=== PATIENT | female | born 1970 | race Caucasian/White ===

== ENCOUNTER → 2017-08-11 13:54 | Outpatient (CLI) | payer BC, SELFPAY ==
[2017-08-11 15:40] LABS: Hematocrit 35.9 % (37-47); Hemoglobin 11.6 g/dl (12.0-15.0); Mean Corp Hgb Conc 32.3 g/gl (32-36); Mean Corpuscular Hgb 27.8 pg (27.0-32.0); Mean Corpuscular Volume 86.1 fL (81-99); Mean Platelet Vol. 12.6 fl (6.2-12.0); Platelet Count 516 K/mm3 (150-450); RBC Distribution Width CV 13.8 % (11.6-14.6); RBC Distribution Width SD 42.9 fl (35.1-43.9); Red Blood Count 4.17 M/mm3 (4.2-5.4); White Blood Count 10.4 K/mm3 (4.4-11.0)
[2017-08-11 15:53] LABS: ALB/GLOB Ratio 0.7 RATIO (0.9-2.4); AST(SGOT) 20 U/L (15-37); Alanine Aminotransfer ALT/SGPT 33 U/L (13-56); Albumin, Serum 3.2 g/dL (3.2-5.0); Alkaline Phosphatase 173 U/L (45-117); Anion Gap 11 (5-15); BUN 14 mg/dL (7-18); BUN/Creat Ratio 13.3 RATIO (10-20); Calcium,Total 9.4 mg/dL (8.5-10.1); Chloride 101 mmol/L (98-107); Creatinine, Serum 1.05 mg/dL (0.55-1.02); EST Glomerular Filtration Rate 59 mL/min (>60); Est Glom Filt Rate - Afr Amer 72 mL/min (>60); GGTP 63 U/L (5-55); Globulin 4.8 g/dL (2.2-4.2); Glucose 93 mg/dL (74-106); Potassium 3.6 mmol/L (3.5-5.1); Rheumatoid Factor < 10.0 IU/mL (<15); Sodium Level 136 mmol/L (136-145); T4 Total, Thyroxin 12.8 ug/dL (4.8-13.9); Uric Acid 4.6 mg/dL (2.6-6.0)
[2017-08-11 15:54] LABS: Scan Indicated on CBC? Y/N NO
[2017-08-11 16:29] LABS: Erythrocyte Sedimentation Rate 89 mm/hr (0-20)
[2017-08-14 11:07] LABS: ANTINUCLEAR ANTIBODIES DIRECT Negative (Negative)
[2017-08-14 20:07] LABS: Complement C3 236 mg/dL (82-167); Immunoglobulin A 173 mg/dL (87-352); Immunoglobulin G 1053 mg/dL (700-1600); Lyme IgG P18 Ab Absent (.); Lyme IgG P23 Ab Absent (.); Lyme IgG P28 Ab Absent (.); Lyme IgG P30 Ab Absent (.); Lyme IgG P39 Ab Absent (.); Lyme IgG P41 Ab Absent (.); Lyme IgG P45 Ab Absent (.); Lyme IgG P58 Ab Absent (.); Lyme IgG P66 Ab Absent (.); Lyme IgG P93 Ab Absent (.); Lyme IgM P23 Ab Present (.); Lyme IgM P39 Ab Absent (.); Lyme IgM P41 Ab Present (.)
[2017-08-15 08:33] LABS: CMV Acute Antibody IgM < 30.0 AU/mL (0.0-29.9); Complement CH50 > 60 U/mL (42-60); EBV Acute VCA IgM < 36.0 U/mL (0.0-35.9); EBV Early Antigen IgG 18.7 U/mL (0.0-8.9); EBV Nuclear Antigen IgG > 600.0 U/mL (0.0-17.9); Lyme IgG WB Interpretation Negative (.); Lyme IgM WB Interpretation Positive (.)
== END ==
PROVIDERS: Family Provider Family Medicine; PCP Family Medicine; Visit Provider Internal Medicine
DX: A69.20 Lyme disease, unspecified (principal); M25.50 Pain in unspecified joint; R53.83 Other fatigue
CPT/HCPCS: 36415; 80053; 82784; 82977; 84436; 84443; 84550; 85027; 85652; 86038; 86160; 86162; 86431; 86617; 86644; 86645; 86663; 86664; 86665

== ENCOUNTER → 2017-10-20 14:51 | Outpatient (CLI) | payer BC, SELFPAY ==
[2017-10-20 17:50] LABS: Hematocrit 40.1 % (37-47); Hemoglobin 12.9 g/dl (12.0-15.0); Mean Corp Hgb Conc 32.2 g/gl (32-36); Mean Corpuscular Hgb 27.8 pg (27.0-32.0); Mean Corpuscular Volume 86.4 fL (81-99); Mean Platelet Vol. 13.3 fl (6.2-12.0); Platelet Count 333 K/mm3 (150-450); RBC Distribution Width CV 14.6 % (11.6-14.6); RBC Distribution Width SD 45.6 fl (35.1-43.9); Red Blood Count 4.64 M/mm3 (4.2-5.4); White Blood Count 8.4 K/mm3 (4.4-11.0)
[2017-10-20 17:51] LABS: Scan Indicated on CBC? Y/N NO
[2017-10-20 18:06] LABS: Albumin, Serum 3.9 g/dL (3.2-5.0); BUN 11 mg/dL (7-18); BUN/Creat Ratio 11.7 RATIO (10-20); Creatinine, Serum 0.94 mg/dL (0.55-1.02); EST Glomerular Filtration Rate 67 mL/min (>60); Est Glom Filt Rate - Afr Amer 82 mL/min (>60); Glucose 108 mg/dL (74-106); Protein, Total 8.1 g/dL (6.4-8.2); Uric Acid 6.6 mg/dL (2.6-6.0)
[2017-10-20 18:07] LABS: ALB/GLOB Ratio 0.9 RATIO (0.9-2.4); AST(SGOT) 50 U/L (15-37); Alanine Aminotransfer ALT/SGPT 63 U/L (13-56); Alkaline Phosphatase 134 U/L (45-117); Anion Gap 11 (5-15); Calcium,Total 9.7 mg/dL (8.5-10.1); Chloride 105 mmol/L (98-107); Globulin 4.2 g/dL (2.2-4.2); Potassium 4.1 mmol/L (3.5-5.1); Sodium Level 141 mmol/L (136-145)
== END ==
PROVIDERS: Family Provider Family Medicine; PCP Family Medicine; Visit Provider Internal Medicine
DX: A69.20 Lyme disease, unspecified (principal); R53.83 Other fatigue; Z79.2 Long term (current) use of antibiotics
CPT/HCPCS: 36415; 80053; 84550; 85027

== ENCOUNTER → 2017-12-21 13:10 | Outpatient (CLI) | payer BC, SELFPAY ==
[2017-12-21 13:58] LABS: Hematocrit 38.9 % (37-47); Hemoglobin 12.8 g/dl (12.0-15.0); Mean Corp Hgb Conc 32.9 g/gl (32-36); Mean Corpuscular Hgb 28.3 pg (27.0-32.0); Mean Corpuscular Volume 86.1 fL (81-99); Platelet Count 326 K/mm3 (150-450); RBC Distribution Width CV 13.9 % (11.6-14.6); Red Blood Count 4.52 M/mm3 (4.2-5.4); White Blood Count 8.5 K/mm3 (4.4-11.0)
[2017-12-21 14:00] LABS: Scan Indicated on CBC? Y/N NO
[2017-12-21 14:14] LABS: ALB/GLOB Ratio 0.9 RATIO (0.9-2.4); AST(SGOT) 39 U/L (15-37); Alanine Aminotransfer ALT/SGPT 49 U/L (13-56); Albumin, Serum 3.7 g/dL (3.2-5.0); Alkaline Phosphatase 112 U/L (45-117); Anion Gap 11 (5-15); BUN 8 mg/dL (7-18); BUN/Creat Ratio 8.2 RATIO (10-20); Calcium,Total 8.3 mg/dL (8.5-10.1); Chloride 104 mmol/L (98-107); Creatinine, Serum 0.97 mg/dL (0.55-1.02); EST Glomerular Filtration Rate 64 mL/min (>60); Est Glom Filt Rate - Afr Amer 78 mL/min (>60); Globulin 4.3 g/dL (2.2-4.2); Glucose 83 mg/dL (74-106); Sodium Level 141 mmol/L (136-145); Uric Acid 6.4 mg/dL (2.6-6.0)
== END ==
PROVIDERS: Family Provider Family Medicine; PCP Family Medicine; Visit Provider Internal Medicine
DX: A69.20 Lyme disease, unspecified (principal); R53.83 Other fatigue; Z79.2 Long term (current) use of antibiotics
CPT/HCPCS: 36415; 80053; 84550; 85027

== ENCOUNTER → 2018-03-08 12:50 | Outpatient (CLI) | payer BC, SELFPAY ==
[2018-03-08 14:06] LABS: Hematocrit 39.2 % (37-47); Hemoglobin 13.3 g/dl (12.0-15.0); Mean Corp Hgb Conc 33.9 g/gl (32-36); Mean Corpuscular Hgb 29.1 pg (27.0-32.0); Mean Corpuscular Volume 85.8 fL (81-99); Mean Platelet Vol. 11.6 fl (6.2-12.0); Platelet Count 287 K/mm3 (150-450); RBC Distribution Width CV 13.7 % (11.6-14.6); RBC Distribution Width SD 42.6 fl (35.1-43.9); Red Blood Count 4.57 M/mm3 (4.2-5.4); White Blood Count 7.8 K/mm3 (4.4-11.0)
[2018-03-08 14:07] LABS: Scan Indicated on CBC? Y/N NO
[2018-03-08 14:09] LABS: AST(SGOT) 43 U/L (15-37); Alanine Aminotransfer ALT/SGPT 69 U/L (13-56); Albumin, Serum 3.9 g/dL (3.2-5.0); Alkaline Phosphatase 114 U/L (45-117); Anion Gap 7 (5-15); BUN 11 mg/dL (7-18); BUN/Creat Ratio 11.7 RATIO (10-20); Calcium,Total 8.5 mg/dL (8.5-10.1); Chloride 106 mmol/L (98-107); Creatinine, Serum 0.94 mg/dL (0.55-1.02); EST Glomerular Filtration Rate 67 mL/min (>60); Est Glom Filt Rate - Afr Amer 81 mL/min (>60); Globulin 3.8 g/dL (2.2-4.2); Glucose 98 mg/dL (74-106); Potassium 3.4 mmol/L (3.5-5.1); Protein, Total 7.7 g/dL (6.4-8.2); Sodium Level 140 mmol/L (136-145); Uric Acid 7.5 mg/dL (2.6-6.0)
== END ==
PROVIDERS: Family Provider Family Medicine; PCP Family Medicine; Visit Provider Internal Medicine
DX: A69.20 Lyme disease, unspecified (principal); R53.83 Other fatigue; Z79.2 Long term (current) use of antibiotics
CPT/HCPCS: 36415; 80053; 84550; 85027

== ENCOUNTER → 2018-05-03 11:24 | Outpatient (CLI) | payer BC, SELFPAY ==
[2018-05-03 14:38] LABS: Hematocrit 39.2 % (37-47); Hemoglobin 12.9 g/dl (12.0-15.0); Mean Corp Hgb Conc 32.9 g/gl (32-36); Mean Corpuscular Hgb 29.6 pg (27.0-32.0); Mean Corpuscular Volume 89.9 fL (81-99); Mean Platelet Vol. 14.5 fl (6.2-12.0); Platelet Count 278 K/mm3 (150-450); RBC Distribution Width CV 13.2 % (11.6-14.6); RBC Distribution Width SD 42.8 fl (35.1-43.9); Red Blood Count 4.36 M/mm3 (4.2-5.4); White Blood Count 7.9 K/mm3 (4.4-11.0)
[2018-05-03 14:39] LABS: Scan Indicated on CBC? Y/N NO
[2018-05-03 14:59] LABS: AST(SGOT) 20 U/L (15-37); Alanine Aminotransfer ALT/SGPT 30 U/L (13-56); Albumin, Serum 3.8 g/dL (3.2-5.0); Alkaline Phosphatase 96 U/L (45-117); Anion Gap 5 (5-15); BUN 14 mg/dL (7-18); BUN/Creat Ratio 14.7 RATIO (10-20); Chloride 107 mmol/L (98-107); Creatinine, Serum 0.95 mg/dL (0.55-1.02); EST Glomerular Filtration Rate 66 mL/min (>60); Est Glom Filt Rate - Afr Amer 80 mL/min (>60); Glucose 112 mg/dL (74-106); Potassium 4.3 mmol/L (3.5-5.1); Protein, Total 7.8 g/dL (6.4-8.2); Sodium Level 140 mmol/L (136-145); Uric Acid 6.4 mg/dL (2.6-6.0)
== END ==
LOC: MTLAB 11:27
PROVIDERS: Family Provider Family Medicine; PCP Family Medicine; Referring Provider Internal Medicine; Visit Provider Internal Medicine
DX: A69.20 Lyme disease, unspecified (principal); R53.83 Other fatigue; Z79.2 Long term (current) use of antibiotics
CPT/HCPCS: 36415; 80053; 84550; 85027

== ENCOUNTER → 2018-06-17 09:15 | Outpatient (CLI) | payer BC, SELFPAY ==
[2018-06-17 12:21] LABS: ALB/GLOB Ratio 1.1 RATIO (0.9-2.4); AST(SGOT) 15 U/L (15-37); Alanine Aminotransfer ALT/SGPT 26 U/L (13-56); Albumin, Serum 3.7 g/dL (3.2-5.0); Alkaline Phosphatase 121 U/L (45-117); Anion Gap 7 (5-15); BUN 14 mg/dL (7-18); BUN/Creat Ratio 13.6 RATIO (10-20); Calcium,Total 8.8 mg/dL (8.5-10.1); Chloride 106 mmol/L (98-107); Cholesterol 212 mg/dL (200); Creatinine, Serum 1.03 mg/dL (0.55-1.02); EST Glomerular Filtration Rate 60 mL/min (>60); Est Glom Filt Rate - Afr Amer 73 mL/min (>60); Globulin 3.4 g/dL (2.2-4.2); Glucose 88 mg/dL (74-106); High Density Lipoprotein 48 mg/dL; Potassium 4.6 mmol/L (3.5-5.1); Protein, Total 7.1 g/dL (6.4-8.2); Sodium Level 140 mmol/L (136-145); Triglycerides 192 mg/dL; Very Low Density Lipoprotein 38 mg/dL (5-40)
== END ==
PROVIDERS: Family Provider Family Medicine; PCP Family Medicine; Visit Provider Family Medicine
DX: Z00.00 Encounter for general adult medical examination without abnormal findings (principal)
CPT/HCPCS: 36415; 80053; 80061

== ENCOUNTER → 2018-07-20 09:55 | Outpatient (CLI) | payer BC, SELFPAY ==
[2018-07-20 12:02] LABS: Hematocrit 40.4 % (37-47); Hemoglobin 12.8 g/dl (12.0-15.0); Mean Corp Hgb Conc 31.7 g/gl (32-36); Mean Corpuscular Volume 91.4 fL (81-99); Mean Platelet Vol. 12.7 fl (6.2-12.0); Platelet Count 267 K/mm3 (150-450); RBC Distribution Width CV 13.1 % (11.6-14.6); RBC Distribution Width SD 43.1 fl (35.1-43.9); Red Blood Count 4.42 M/mm3 (4.2-5.4); White Blood Count 6.5 K/mm3 (4.4-11.0)
[2018-07-20 12:04] LABS: Scan Indicated on CBC? Y/N NO
[2018-07-20 12:39] LABS: ALB/GLOB Ratio 1.1 RATIO (0.9-2.4); AST(SGOT) 10 U/L (15-37); Alanine Aminotransfer ALT/SGPT 26 U/L (13-56); Albumin, Serum 3.7 g/dL (3.2-5.0); Alkaline Phosphatase 119 U/L (45-117); Anion Gap 11 (5-15); BUN 12 mg/dL (7-18); BUN/Creat Ratio 10.3 RATIO (10-20); Calcium,Total 9.2 mg/dL (8.5-10.1); Chloride 106 mmol/L (98-107); Creatinine, Serum 1.17 mg/dL (0.55-1.02); EST Glomerular Filtration Rate 52 mL/min (>60); Est Glom Filt Rate - Afr Amer 63 mL/min (>60); Globulin 3.3 g/dL (2.2-4.2); Glucose 85 mg/dL (74-106); Potassium 4.4 mmol/L (3.5-5.1); Sodium Level 143 mmol/L (136-145)
== END ==
PROVIDERS: Family Provider Family Medicine; PCP Family Medicine; Visit Provider Internal Medicine
DX: A69.20 Lyme disease, unspecified (principal); R53.83 Other fatigue; Z79.2 Long term (current) use of antibiotics
CPT/HCPCS: 36415; 80053; 84550; 85027

== ENCOUNTER → 2018-09-22 12:20 | Outpatient (CLI) | payer BC, SELFPAY ==
[2018-09-22 13:37] LABS: Hematocrit 38.4 % (37-47); Hemoglobin 12.5 g/dl (12.0-15.0); Mean Corp Hgb Conc 32.6 g/gl (32-36); Mean Corpuscular Hgb 28.6 pg (27.0-32.0); Mean Corpuscular Volume 87.9 fL (81-99); Platelet Count 256 K/mm3 (150-450); RBC Distribution Width CV 13.2 % (11.6-14.6); RBC Distribution Width SD 41.4 fl (35.1-43.9); Red Blood Count 4.37 M/mm3 (4.2-5.4); White Blood Count 6.5 K/mm3 (4.4-11.0)
[2018-09-22 13:40] LABS: Scan Indicated on CBC? Y/N NO
[2018-09-22 13:48] LABS: ALB/GLOB Ratio 1.2 RATIO (0.9-2.4); AST(SGOT) 21 U/L (15-37); Alanine Aminotransfer ALT/SGPT 27 U/L (13-56); Albumin, Serum 3.9 g/dL (3.2-5.0); Alkaline Phosphatase 118 U/L (45-117); Anion Gap 4 (5-15); BUN 13 mg/dL (7-18); BUN/Creat Ratio 11.5 RATIO (10-20); Calcium,Total 9.2 mg/dL (8.5-10.1); Chloride 106 mmol/L (98-107); Creatinine, Serum 1.13 mg/dL (0.55-1.02); EST Glomerular Filtration Rate 54 mL/min (>60); Est Glom Filt Rate - Afr Amer 65 mL/min (>60); Globulin 3.3 g/dL (2.2-4.2); Glucose 87 mg/dL (74-106); Potassium 4.3 mmol/L (3.5-5.1); Protein, Total 7.2 g/dL (6.4-8.2); Sodium Level 138 mmol/L (136-145); Uric Acid 5.6 mg/dL (2.6-6.0)
== END ==
PROVIDERS: Family Provider Family Medicine; PCP Family Medicine; Referring Provider Internal Medicine; Visit Provider Internal Medicine
DX: A69.20 Lyme disease, unspecified (principal); R53.83 Other fatigue; Z79.2 Long term (current) use of antibiotics
CPT/HCPCS: 36415; 80053; 84550; 85027; A4216

== ENCOUNTER → 2018-11-22 10:04 | Outpatient (CLI) | payer BC, SELFPAY ==
[2018-11-22 12:24] LABS: Hematocrit 36.6 % (37-47); Hemoglobin 11.8 g/dl (12.0-15.0); Mean Corp Hgb Conc 32.2 g/gl (32-36); Mean Corpuscular Hgb 28.9 pg (27.0-32.0); Mean Corpuscular Volume 89.5 fL (81-99); Mean Platelet Vol. 12.9 fl (6.2-12.0); Platelet Count 252 K/mm3 (150-450); RBC Distribution Width CV 13.6 % (11.6-14.6); RBC Distribution Width SD 44.8 fl (35.1-43.9); Red Blood Count 4.09 M/mm3 (4.2-5.4); White Blood Count 5.6 K/mm3 (4.4-11.0)
[2018-11-22 12:28] LABS: Scan Indicated on CBC? Y/N NO
[2018-11-22 12:48] LABS: BUN 17 mg/dL (7-18); Creatinine, Serum 1.28 mg/dL (0.55-1.02); Glucose 83 mg/dL (74-106)
[2018-11-22 12:49] LABS: AST(SGOT) 14 U/L (15-37); Alanine Aminotransfer ALT/SGPT 21 U/L (13-56); Albumin, Serum 3.5 g/dL (3.2-5.0); Alkaline Phosphatase 117 U/L (45-117); Anion Gap 6 (5-15); BUN/Creat Ratio 13.3 RATIO (10-20); Calcium,Total 9.1 mg/dL (8.5-10.1); Chloride 108 mmol/L (98-107); EST Glomerular Filtration Rate 47 mL/min (>60); Est Glom Filt Rate - Afr Amer 57 mL/min (>60); Globulin 3.5 g/dL (2.2-4.2); Potassium 4.3 mmol/L (3.5-5.1); Sodium Level 140 mmol/L (136-145); Uric Acid 5.9 mg/dL (2.6-6.0)
== END ==
PROVIDERS: Family Provider Family Medicine; PCP Family Medicine; Referring Provider Internal Medicine; Visit Provider Internal Medicine
DX: A69.20 Lyme disease, unspecified (principal); R53.83 Other fatigue; Z79.2 Long term (current) use of antibiotics
CPT/HCPCS: 36415; 80053; 84550; 85027

== ENCOUNTER → 2019-01-26 09:23 | Outpatient (CLI) | payer BC, SELFPAY ==
[2019-01-26 10:19] LABS: Hemoglobin 11.8 g/dL (12.0-15.0); Mean Corp Hgb Conc 31.9 g/dL (32-36); Mean Corpuscular Hgb 28.9 pg (27.0-32.0); Mean Corpuscular Volume 90.5 fL (81-99); Mean Platelet Vol. 11.8 fl (6.2-12.0); Platelet Count 268 K/mm3 (150-450); RBC Distribution Width CV 12.6 % (11.6-14.6); RBC Distribution Width SD 41.3 fl (35.1-43.9); Red Blood Count 4.09 M/mm3 (4.2-5.4); White Blood Count 6.3 K/mm3 (4.4-11.0)
[2019-01-26 11:01] LABS: ALB/GLOB Ratio 0.9 RATIO (0.9-2.4); AST(SGOT) 15 U/L (15-37); Alanine Aminotransfer ALT/SGPT 20 U/L (13-56); Albumin, Serum 3.4 g/dL (3.2-5.0); Alkaline Phosphatase 130 U/L (45-117); Anion Gap 6 (5-15); BUN 19 mg/dL (7-18); BUN/Creat Ratio 16.7 RATIO (10-20); Chloride 109 mmol/L (98-107); Creatinine, Serum 1.14 mg/dL (0.55-1.02); EST Glomerular Filtration Rate 53 mL/min (>60); Est Glom Filt Rate - Afr Amer 65 mL/min (>60); Globulin 3.6 g/dL (2.2-4.2); Glucose 89 mg/dL (74-106); Potassium 4.2 mmol/L (3.5-5.1); Sodium Level 142 mmol/L (136-145); Uric Acid 4.9 mg/dL (2.6-6.0)
== END ==
LOC: MFPLAB 09:24
PROVIDERS: Family Provider Family Medicine; PCP Family Medicine; Referring Provider Family Medicine; Visit Provider Internal Medicine
DX: A69.20 Lyme disease, unspecified (principal); R53.83 Other fatigue; Z79.2 Long term (current) use of antibiotics
CPT/HCPCS: 36415; 80053; 84550; 85027

== ENCOUNTER 2019-01-27 12:50 | Inpatient (IN) | payer BC, SELFPAY ==
[2019-01-27] VITALS (26 sets, daily range): BP systolic 90–135; BP diastolic 62–120; PULSE 102–143; RESP 14–31; TEMP 36.6–36.8; O2SAT 94–100; BMI 47.5; BMI 46.9
--- NOTE | 2019-01-27 13:04 | RAD_ITS ---
STUDY: X-RAY CHEST REASON FOR EXAM: Female, 48 years old. Chest pain. 2 day history of shortness of breath. TECHNIQUE: Single AP portable view of the chest. COMPARISON: Comparison is made with prior study dated January 23, 2017. FINDINGS: EKG electrodes are seen. The lungs are clear and expanded. There is no demonstrated pleural abnormality. Normal size heart. Normal mediastinum and homer. Normal visualized pulmonary arteries. Normal visualized aortic arch and descending thoracic aorta. Normal visualized thoracic spine. Normal visualized ribs, clavicles, and shoulders. There is no demonstrated abnormality of the visualized soft tissue structures of the upper abdomen. RAD/Chest 1 View (Portable) IMPRESSION: Normal x-ray examination of the chest. Electronically Signed: Gilbert Hewitt, at 13:25 EDT , Service support ,
--- NOTE | 2019-01-27 13:04 | EKG12_ITS ---
Test Reason : CP/SOB Blood Pressure : / mmHG Vent. Rate : 127 BPM Atrial Rate : 127 BPM P-R Int : 000 ms QRS Dur : 094 ms QT Int : 298 ms P-R-T Axes : 000 030 042 degrees QTc Int : 433 ms Atrial Flutter Low voltage QRS Abnormal ECG Confirmed by ANITA MCCLAIN, KAREN ([id number]), editor sound FLORENTIN MAE ([id number]) on 01/31/2019 1:00:12 PM Referred By: Shante Cardenas Confirmed By:FISH HOWARD MD
--- NOTE | 2019-01-27 13:04 | ED.VIS.GEN ---
History of Present Illness Chief Complaint: Chest Pain Informant: Patient Onset: Yesterday Context: Gradual Onset Timing: Continuous Current Severity: Moderate Maximum Severity: Moderate Narrative: Patient presents with chest pain since yesterday. She is feeling jittery, has some chest pain and back pain. She has no tearing sensation. She has no pleuritic component. She has no prior cardiac problems. She has no nausea vomiting or abdominal pain. No radiation to arms legs neck jaw or head. Past Medical History - Allergies and Home Meds Allergies/Adverse Reactions: Allergies penicillin Allergy (Intermediate, Verified 01/27/19 12:58) Swelling Primary Care Physician: Mark Hurtado MD [Primary Care Provider] - Past Medical History: - - Obesity, reflux disease, smoker, Lyme's disease Surgical History: no surgical history Smoking Status: Current every day smoker Review of Systems All systems negative except as indicated General: Denies: Chills, Fever Eyes: Denies: Visual changes - bilaterally Cardiovascular: Reports: Chest pain, Palpitations. Denies: Heart racing Respiratory: Reports: Dyspnea on exertion. Denies: Dyspnea, Cough Gastrointestinal: Denies: Abdominal pain, Nausea, Vomiting Musculoskeletal: Denies: Myalgias Skin: Denies: Rash Neurological: Denies: Headache, Weakness Endocrine: Denies: Polyuria Physical Exam Vital Signs/Narrative: Vital Signs Temp Pulse Resp BP Pulse Ox 01/27/19 12:51 98.2 F 118 H 20 H 118/97 H 94 Inital Vital Signs reviewed: Yes General: Well nourished, Well developed, Obese Head: Normocephalic, Atraumatic Eyes: Perrl ENT: Moist mucous membranes Neck: Supple Cardiovascular: - - Irregular tachycardia Respiratory: No distress, - - Coarse bilateral breath sounds Abdomen: Soft Rectal: Deferred Back: Nontender, Normal Inspection Extremities: Nontender, No edema Skin: Normal color Neurological: Alert, Oriented x3 Diagnostic/Tx/Re-eval Chest X-Ray - ED: 1 View, Read by Radiologist, Normal, Heart, Lungs - Rhythm Strip Rhythm Strip: A-fib Rate: 140 Ectopy: None - EKG Initial EKG Interpretation: Atrial Fibrillation, Non-Specific ST Changes, - - Unremarkable QTC. No acute injury pattern Interpreted by emergency doctor Prior: Changed - Medical Decision Making Patient is given Cardizem for initial atrial fibrillation, she does have some episodes of atrial flutter along with the atrial fibrillation her heart rate now is in the 120s which is improved from before however her blood pressure is somewhat dropped. Because of this I added digoxin. She has improvement of her blood pressure and her heart rate is staying into the 120s. I will admit her for further monitoring. Admit in guarded condition ED Disposition - Plan for ED Patient: Disposition: Psychiatric Hospital or Unit Diagnosis: Atrial fibrillation Referrals: Mark Hurtado MD [Primary Care Provider] -
[2019-01-27 13:15] LABS: Absolute Lymphocyte Count 2.35 X10^3/uL (0.83-4.51); Absolute Neutrophil Count 4.5 X10^3/uL (2.0-7.7); Basophil# 0.06 X10^3/uL; Basophil% 0.8 % (0-1); Eosinophil# 0.21 X10^3/uL; Eosinophils% 2.7 % (0-5); Hematocrit 39.6 % (37-47); Hemoglobin 13.2 g/dL (12.0-15.0); Lymphocyte # 2.35 X10^3/ul (4.0); Lymphocyte % 30.4 % (19-41); Mean Corp Hgb Conc 33.3 g/dL (32-36); Mean Corpuscular Hgb 29.7 pg (27.0-32.0); Mean Platelet Vol. 10.8 fl (6.2-12.0); Monocyte# 0.59 X10^3/uL; Monocyte% 7.6 % (0-10); NRBC Flagged by Analyzer 0 % (0-5); Neutrophil # 4.46 X10^3/uL (2.7-7.7); Neutrophil % 57.6 % (47-70); Platelet Count 291 K/mm3 (150-450); RBC Distribution Width CV 12.5 % (11.6-14.6); RBC Distribution Width SD 40.9 fl (35.1-43.9); Red Blood Count 4.45 M/mm3 (4.2-5.4); White Blood Count 7.7 K/mm3 (4.4-11.0)
[2019-01-27] MEDS: dilTIAZem 25 MG/5 ML Vial 20 MG IV BOLUS (13:17)
[2019-01-27] MEDS: Aspirin 81 MG TAB.CHEW 324 MG PO (13:17)
[2019-01-27 13:28] LABS: Anion Gap 9 (5-15); BUN 15 mg/dL (7-18); BUN/Creat Ratio 12.4 RATIO (10-20); Chloride 110 mmol/L (98-107); Creatinine, Serum 1.21 mg/dL (0.55-1.02); EST Glomerular Filtration Rate 50 mL/min (>60); Est Glom Filt Rate - Afr Amer 60 mL/min (>60); Estimated Creatinine Clearance 60.15 ml/min; Glucose 105 mg/dL (74-106); Potassium 4.1 mmol/L (3.5-5.1); Sodium Level 141 mmol/L (136-145)
--- NOTE | 2019-01-27 13:37 | ED.RN ---
MD AWARE OF BP, NO NEW ORDERS GIVEN.
--- NOTE | 2019-01-27 14:00 | EKG12_ITS ---
Test Reason : REPEAT Blood Pressure : / mmHG Vent. Rate : 126 BPM Atrial Rate : 127 BPM P-R Int : 000 ms QRS Dur : 094 ms QT Int : 296 ms P-R-T Axes : 000 035 -03 degrees QTc Int : 428 ms Atrial Flutter with 2:1 Block Low voltage QRS Abnormal ECG Confirmed by ANITA MCCLAIN, KAREN ([id number]), newspaper managing editor FLORENTIN MAE ([id number]) on 01/31/2019 1:01:32 PM Referred By: Shante Cardenas Confirmed By:FISH HOWARD MD
[2019-01-27] MEDS: Enoxaparin 150 MG/ML Syringe SC ×2 (14:08→21:51)
--- NOTE | 2019-01-27 14:20 | ED.RN ---
CALLED PHARMACY REGARDING DIGOXIN.
[2019-01-27] MEDS: Digoxin 125 MCG Tablet 62.5 MCG PO (14:24)
--- NOTE | 2019-01-27 15:27 | ECHOCS_ITS ---
Reason For Study: Afib/Flutter Procedure This was a 2D Doppler, Color Flow transthoracic echocardiogram. The study was technically difficult. Contrast injection was performed. Exam performed portable in patient room. Left Ventricle Normal size and thickness. The estimated ejection fraction is 60 %. Normal diastology for age. No regional wall motion abnormalities noted. Right Ventricle Normal RV size. Normal systolic function. Atria Normal left atrium. Normal right atrium. No doppler evidence for ASD. Mitral Valve There is no mitral valve stenosis. No mitral valve insufficiency. Tricuspid Valve There is no tricuspid stenosis. Unable to estimate RV systolic pressure due to inadequate jet, pulmonary artery pressure probably normal. Aortic Valve not well visualized. There is no aortic stenosis. No aortic valve insufficiency. Pulmonic Valve There is no pulmonic valvular stenosis. No pulmonic valve insufficiency. Great Vessels Normal aortic root. Pericardium/Pleural No pericardial effusion. Medication Diluted definity 3ml given slow IV push to enhance endocardial definition. MMode/2D Measurements & Calculations LVIDd: 4.0 cm IVSd: 1.1 cm LAV(MOD-sp4): 41.6 ml LVIDs: 3.1 cm LVPWd: 1.2 cm FS: 23.8 % LA A4 area: 16.2 cm2 RA A4 area: 14.3 cm2 Doppler Measurements & Calculations MV E max bhavna: 97.8 cm/sec Ao V2 max: 145.2 cm/sec LV V1 max: 120.2 cm/sec Ao max P.4 mmHg LV V1 max P.8 mmHg PA V2 max: 110.9 cm/sec Interpretation Summary Diluted definity 3ml given slow IV push to enhance endocardial definition. The study was technically difficult. Contrast injection was performed. The estimated ejection fraction is 60 %. Normal diastology for age. The study was technically difficult. Contrast injection was performed. Ordering Physician: Shante Cardenas Referring Physician: Wagner Hurtado MD Performed By: Alireza Raya RCS
--- NOTE | 2019-01-27 15:29 | PCM.HP.STD ---
Problem List (1) Atrial fibrillation Status: Acute Qualifiers: Atrial fibrillation type: paroxysmal Qualified Code(s): I48.0 - Paroxysmal atrial fibrillation (2) Morbid obesity Status: Chronic (3) Tobacco use Status: Chronic (4) KANU (obstructive sleep apnea) Status: Suspected (5) Lyme disease Status: Chronic (6) History of pancreatitis Status: Chronic (7) GERD (gastroesophageal reflux disease) Status: Chronic Qualifiers: Esophagitis presence: esophagitis presence not specified Qualified Code(s): K21.9 - Gastro-esophageal reflux disease without esophagitis History of Present Illness Date of Admission: 01/27/19 Chief Complaint: Racing heart, chest pain and tightness. The patient is a 48 y/o F w/ PMHx: Morbid obesity, suspected KANU, GERD, history of prior pancreatitis, Lyme disease with ongoing dual antibiotic therapy for specialist in [place], tobacco use who presents to the [facility] ED on 01/27/19 with history of onset of chest discomfort midsternal as well as between her scapula otherwise nonradiating described as a dull, constant ongoing 3-5 out of 10 starting the evening prior however continued today with then onset of more chest tightness and sensation of racing heart with also upper abdominal mild discomfort with self watch vital signs with tachycardia and elevated blood pressure prompting eventual ED presentation. Work-up in the ED included T 98.2, heart rate 143, BP 118/97, respiratory rate 20, 94% on room air, CBC unremarkable, BMP with chloride 110, BUN 15, creatinine 1.21, troponin less than 0.015, EKG with atrial fibrillation with RVR. In the ED patient ministered therapeutic Lovenox x1, Cardizem 20 mg IV bolus with then onset of hypotension with eventual improvement with then attempt of oral digoxin administration given ongoing RVR without market improvement. Past Medical History Past Medical History (Chronic Problems): Chronic Problems Morbid obesity (Chronic) Tobacco use (Chronic) Lyme disease (Chronic) History of pancreatitis (Chronic) GERD (gastroesophageal reflux disease) (Chronic) Allergies penicillin Allergy (Intermediate, Verified 01/27/19 12:58) Swelling Home Medications: Ambulatory Orders Medication Instructions Recorded Etodolac 400 mg PO BID 01/04/17 Ascorbic Acid [Vitamin C] 1,000 mg PO BIDCM 01/27/19 Doxycycline Hyclate 100 mg PO TID 01/27/19 Lansoprazole 15 mg NG DAILY 01/27/19 Smz/Tmp Ds [Bactrim Ds] 1 tab PO BID 01/27/19 Turmeric Root Extract [Turmeric] 500 mg PO BID 01/27/19 Vitamin B Complex [B Complex] 1 tab PO DAILY 01/27/19 traMADol [Ultram] 50 mg PO BID 01/27/19 Surgical History: Surgical History (Last Updated 06/17/17 @ 14:09 by Tc Bowie) Gallbladder Removed Surgical History: - - Right knee arthroscopic surgery x2, cholecystectomy, left oophorectomy, LEEP. 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 Tobacco Use: Cigarettes Alcohol: None Drugs: None - *Family History Maternal History Items: - - Patient notes a maternal family history of chronic kidney disease, heart disease, atrial fibrillation. Paternal History Items: - - Patient notes paternal family history of chronic kidney disease, heart disease. Review of Systems Constitutional: Reports: Malaise, Weakness, Fatigue. Denies: Chills, Fever, Weight Change HEENT: Denies: Head Aches, Sinus Congestion, Sinus Drainage Cardiovascular: Reports: Chest Pain, Chest Tightness, Palpitations. Denies: Chest Pressure, Light Headedness, Orthopnea, Syncope Respiratory: Denies: Cough, Shortness of Breath, Shortness of breath at rest, Shortness of breath upon exertion, Sputum production, Wheezing Gastrointestinal: Reports: Abdominal Pain. Denies: Nausea, Vomiting Genitourinary: Denies: Dysuria Musculoskeletal: Reports: Joint Pain. Denies: Joint Tenderness Skin: Denies: Rash, Wounds Neurological: Denies: Numbness, Tingling, Focal weakness Psychiatric: Denies: Anxiety, Depression, Homicidal Ideations, Suicidal Ideations Hematologic/ Lymphatic: Denies: Easy Bruising, Easy Bleeding VTE Information - Inpt Only VTE Present on Admission: No VTE Mechan Device Prophylaxis: SCD's VTE Pharm Prophylaxis ordered?: Yes Patient Problems: Active and Suspected Problems Atrial fibrillation (Acute) KANU (obstructive sleep apnea) (Suspected) Subjective: Seated upright in ED bed, mildly fatigued appearance, notes some ongoing midsternal dull chest ache as well as between her shoulder blades, palpitations still ongoing, rate currently 130s. Objective: Physical Examination: General: awake, alert, oriented x 3 and cooperative, seated upright in the ED bed, fatigued appearance, ongoing chest discomfort and palpitations. Skin: normal color, turgor, no icterus, cyanosis. HEENT: AT/NC, EOMI, PERRLA, mildly dry MM, no carotid bruits or JVD noted; however, thickened neck makes examination difficult. Lungs: CTA bilaterally, moderate effort, moderate decrease BL bases, no rales, ronchi or wheezing. Heart: Irregular irregular; no gallop, rub audible. Abdomen: soft, morbidly obese, NTTP, ND, normal BS, no HSM; however, habitus makes examination difficult. Extremities: no cyanosis, clubbing, or edema. Neurological: patient awake, alert, oriented x 3; cognitive function intact; pupils equally reactive to light and accomodation; cranial nerves II-XII grossly normal, moving all 4 extremities, no focal deficits, strength severely global decrease secondary to acute presentation. Psychiatric: affect appears fatigued, no acute evidence of depressive or anxiety feelings. - Physical Exam Vital Signs Temp Pulse Resp BP Pulse Ox 98.2 F 127 H 17 135/97 H 98 01/27/19 12:51 01/27/19 14:18 01/27/19 14:18 01/27/19 14:18 01/27/19 14:18 Oxygen Delivery Method Room Air Weight: 331 lb 5.676 oz Body Mass Index (BMI) 47.5 Laboratory Tests Past 24 Hrs 01/27/19 01/27/19 13:02 13:02 WBC 7.7 RBC 4.45 Hgb 13.2 Hct 39.6 MCV 89.0 MCH 29.7 MCHC 33.3 RDW Std Deviation 40.9 RDW Coeff of Lily 12.5 Plt Count 291 MPV 10.8 Immature Gran % (Auto) 0.900 Neut % (Auto) 57.6 Lymph % (Auto) 30.4 [place] % (Auto) 7.6 Eos % (Auto) 2.7 Baso % (Auto) 0.8 Absolute Neuts (auto) 4.5 Absolute Lymphs (auto) 2.35 Nucleated RBC % 0 Sodium 141 Potassium 4.1 Chloride 110 H Carbon Dioxide 22.0 Anion Gap 9 BUN 15 Creatinine 1.21 H Estim Creat Clear Calc 60.15 Est GFR (MDRD) Af Amer 60 Est GFR (MDRD) Non-Af 50 L BUN/Creatinine Ratio 12.4 Glucose 105 Calcium 9.0 Troponin I < 0.015 Assessment/Plan All Active Problems Atrial fibrillation (Acute) Septic arthritis of knee, right (Acute) The patient is a 48 y/o F w/ PMHx: Morbid obesity, suspected KANU, GERD, history of prior pancreatitis, Lyme disease with ongoing dual antibiotic therapy for specialist in [place], tobacco use who presents to the [facility] ED on 01/27/19 with history of onset of chest discomfort midsternal as well as between her scapula otherwise nonradiating described as a dull, constant ongoing 3-5 out of 10 starting the evening prior however continued today with then onset of more chest tightness and sensation of racing heart with also upper abdominal mild discomfort with self watch vital signs with tachycardia and elevated blood pressure prompting eventual ED presentation. 1. New onset, Paroxsymal atrial fibrillation with chest pain: EKG in ED w/ atrial fibrillation w/ RVR. Patient administered IV Cardizem as well as oral digoxin in ED. Will admit to PCU, maintain on telemetry, obtain cardiac enzyme serial set, obtain magnesium level, obtain ECHO, obtain TSH level. Given patient hypotension with attempted usage of Cardizem will transition to amiodarone bolus and drip pending cardiology evaluation and alternate medication per their discretion. CHADs scoring not marketed but patient also not best historian guarding her health and from discussions likely does not seek medical attention aside for her Lyme disease often therefore we will continue therapeutic Lovenox pending cardiology evaluation. Cardiology consulted, pending. 2. Epigastric abdominal discomfort: Notes occurred with chest pain, atypical, some discomfort with palpation of the epigastric region but not severe, notes history of prior pancreatitis and states this is not consistent, will obtain lipase level, does also have notable chronic usage of NSAID therapy with GERD therefore we will hold anti-inflammatory regimen and initiate twice daily high-dose Protonix as possible gastritis as etiology. 3. Morbid Obesity: Weight loss and lifestyle changes encouraged, nutrition consulted. 4. Suspected KANU: Patient gives history that is concerning for KANU, declined to have testing performed and said she would likely not use the mask, will maintain on trending pulse ox to ascertain. 5. Lyme's disease: Currently being treated by specialist in [place], will continue dual antibiotic therapy, recommended continued evaluation and follow-up outpatient. 6. DVT prophylaxis: SCDs, therapeutic Lovenox as noted. Code Visit Inpatient E&M: 21752 Init Hosp L3
[2019-01-27 16:01] LABS: Magnesium 1.9 mg/dL (1.6-2.6)
[2019-01-27] MEDS: 0.9% Normal Saline 1,000 ML 100 ML IV (16:39)
[2019-01-27 16:55] LABS: Lipase 336 U/L (73-393)
[2019-01-27] MEDS: Adenosine 6 MG/2 ML Syringe IV (17:04)
--- NOTE | 2019-01-27 17:31 | PCM.CONS.C ---
Problem List (1) Atrial fibrillation Status: Acute Qualifiers: Atrial fibrillation type: paroxysmal Qualified Code(s): I48.0 - Paroxysmal atrial fibrillation Reason for Consult Date of Consultation: 01/27/19 History of Present Illness: The patient is a 48 y/o F w/ PMHx: Morbid obesity, suspected KANU, GERD, history of prior pancreatitis, Lyme disease with ongoing dual antibiotic therapy for specialist in [place], tobacco use who presents to the [facility] ED on 01/27/19 with history of onset of chest discomfort midsternal as well as between her scapula otherwise nonradiating described as a dull, constant ongoing 3-5 out of 10 starting the evening prior however continued today with then onset of more chest tightness and sensation of racing heart with also upper abdominal mild discomfort with self watch vital signs with tachycardia and elevated blood pressure prompting eventual ED presentation. Work-up in the ED included T 98.2, heart rate 143, BP 118/97, respiratory rate 20, 94% on room air, CBC unremarkable, BMP with chloride 110, BUN 15, creatinine 1.21, troponin less than 0.015, EKG with atrial fibrillation with RVR. In the ED patient ministered therapeutic Lovenox x1, Cardizem 20 mg IV bolus with then onset of hypotension with eventual improvement with then attempt of oral digoxin administration given ongoing RVR without market improvement. Patient was given 6 mg IV adenosine in the PCU and this briefly slowed the heart rate to reveal the flutter waves. Next Review of systems: All systems reviewed. All else is negative except that in the HPI Past Medical History Allergies/Adverse Reactions: Allergies penicillin Allergy (Intermediate, Verified 01/27/19 12:58) Swelling Home Medications: Ambulatory Orders Medication Instructions Recorded Etodolac 400 mg PO BID 01/04/17 Ascorbic Acid [Vitamin C] 1,000 mg PO BIDCM 01/27/19 Doxycycline Hyclate 100 mg PO TID 01/27/19 Lansoprazole 15 mg NG DAILY 01/27/19 Smz/Tmp Ds [Bactrim Ds] 1 tab PO BID 01/27/19 Turmeric Root Extract [Turmeric] 500 mg PO BID 01/27/19 Vitamin B Complex [B Complex] 1 tab PO DAILY 01/27/19 traMADol [Ultram] 50 mg PO BID 01/27/19 Past Medical History (Chronic Problems): Chronic Problems Morbid obesity (Chronic) Tobacco use (Chronic) Lyme disease (Chronic) History of pancreatitis (Chronic) GERD (gastroesophageal reflux disease) (Chronic) Surgical History: - - Right knee arthroscopic surgery x2, cholecystectomy, left oophorectomy, LEEP. 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 Paternal History Items: - - Patient notes paternal family history of chronic kidney disease, heart disease. Lives: Alone Smoking Status: Current every day smoker Tobacco Use: Cigarettes Alcohol: None Drugs: None Objective: Vital Signs Temp Pulse Resp BP Pulse Ox 98.2 F 130 H 18 98/69 99 01/27/19 15:10 01/27/19 15:10 01/27/19 15:10 01/27/19 15:10 01/27/19 15:20 Oxygen Delivery Method Room Air Weight: 326 lb 11.601 oz Body Mass Index (BMI) 47.5 Intake and Output for Last 24 Hours 01/25/19 01/26/19 01/27/19 23:59 23:59 23:59 Intake Total 240 / 240 Balance 240 / 240 General: Awake, Alert, Oriented x 3 HEENT: Atraumatic Oral: Moist Mucosa Neck: Supple Lungs: Clear to auscultation Cardiovascular: Normal S1, Normal S2 Abdomen: Soft Extremities: No edema Skin: No Rashes Psych/Mental Status: Appropriate 01/27/19 13:02: WBC 7.7, RBC 4.45, Hgb 13.2, Hct 39.6, MCV 89.0, MCH 29.7, MCHC 33.3, Plt Count 291, MPV 10.8, Immature Gran % (Auto) 0.900, Neut % (Auto) 57.6, Lymph % (Auto) 30.4, [place] % (Auto) 7.6, Eos % (Auto) 2.7, Baso % (Auto) 0.8, Absolute Neuts (auto) 4.5, Nucleated RBC % 0 01/27/19 13:02: Sodium 141, Potassium 4.1, Chloride 110 H, Carbon Dioxide 22.0, Anion Gap 9, BUN 15, Creatinine 1.21 H, Est GFR (MDRD) Af Amer 60, Est GFR (MDRD) Non-Af 50 L, BUN/Creatinine Ratio 12.4, Glucose 105, Calcium 9.0, Troponin I < 0.015 01/27/19 13:02: Magnesium 1.9 01/27/19 16:23: Troponin I < 0.015 Rhythm: EKG: ECHO: Stress Test: Cardiac Cath: PCI: CT Surgery: Holter monitor: EPS: PPM: CXR: Chest CT Scan: Assessment/Plan 1. A flutter: Patient did not tolerate the 20 mg IV bolus of Cardizem in the emergency room. She has been given an IV bolus of amiodarone and amiodarone drip has been started. I will start her on p.o. Cardizem 30 mg p.o. every 6 hours and also give 2 additional doses of digoxin. 2. Chest pain: Appears to be related to her a flutter with rapid ventricular response. If patient has chest discomfort with controlled ventricular response then we will consider further work-up.
[2019-01-27] MEDS: Digoxin 250 MCG Tablet 500 MCG PO (18:11)
[2019-01-27] MEDS: dilTIAZem 30 MG Tablet PO (19:21)
[2019-01-27] MEDS: traMADol 50 MG Tablet PO (21:50)
[2019-01-27] MEDS: Doxycycline 100 MG CAPSULE PO (21:50)
[2019-01-27] MEDS: Smz/Tmp Ds Tablet 1 TABLET PO (21:50)
[2019-01-27 23:03] LABS: Amphetamine Urine VISTA NEGATIVE (<1000 ng/mL); Barbiturate Urine VISTA NEGATIVE (< 200 ng/mL); Benzodiazepine Urine VISTA NEGATIVE (< 200 ng/mL); Cocaine Urine VISTA NEGATIVE (< 300 ng/mL); Ecstacy Urine VISTA NEGATIVE (< 500 ng/mL); Methadone Urine VISTA NEGATIVE (< 300 ng/mL); PCP Urine VISTA NEGATIVE (< 25 ng/mL); THC Urine VISTA NEGATIVE (< 50 ng/mL); Vista UDS pH Range 6
[2019-01-27] MEDS: Digoxin 250 MCG Tablet PO (23:03)
[2019-01-28] VITALS (29 sets, daily range): BP systolic 96–133; BP diastolic 58–93; PULSE 91–141; RESP 12–20; TEMP 36.4–37; O2SAT 94–100
[2019-01-28] MEDS: 0.9% Normal Saline 1,000 ML 100 ML IV ×2 (01:56→12:35)
[2019-01-28] MEDS: Doxycycline 100 MG CAPSULE PO ×3 (05:29→21:22)
[2019-01-28] MEDS: 0.9% NaCl Peripheral Flush Adult/Peds IV (05:29)
[2019-01-28] MEDS: dilTIAZem 30 MG Tablet PO ×2 (05:29→12:39)
[2019-01-28 07:08] LABS: Absolute Lymphocyte Count 2.33 X10^3/uL (0.83-4.51); Absolute Neutrophil Count 2.9 X10^3/uL (2.0-7.7); Basophil# 0.04 X10^3/uL; Basophil% 0.7 % (0-1); Eosinophil# 0.19 X10^3/uL; Eosinophils% 3.2 % (0-5); Hematocrit 37.9 % (37-47); Hemoglobin 12.6 g/dL (12.0-15.0); Lymphocyte # 2.33 X10^3/ul (4.0); Lymphocyte % 39.2 % (19-41); Mean Corp Hgb Conc 33.2 g/dL (32-36); Mean Corpuscular Hgb 29.3 pg (27.0-32.0); Mean Corpuscular Volume 88.1 fL (81-99); Mean Platelet Vol. 10.4 fl (6.2-12.0); Monocyte# 0.41 X10^3/uL; Monocyte% 6.9 % (0-10); NRBC Flagged by Analyzer 0 % (0-5); Neutrophil # 2.93 X10^3/uL (2.7-7.7); Neutrophil % 49.2 % (47-70); Platelet Count 241 K/mm3 (150-450); RBC Distribution Width CV 12.6 % (11.6-14.6); RBC Distribution Width SD 40.3 fl (35.1-43.9)
[2019-01-28 07:32] LABS: Anion Gap 6 (5-15); BUN 13 mg/dL (7-18); Calcium,Total 8.8 mg/dL (8.5-10.1); Chloride 115 mmol/L (98-107); Cholesterol 198 mg/dL (200); Creatinine, Serum 1.08 mg/dL (0.55-1.02); EST Glomerular Filtration Rate 57 mL/min (>60); Est Glom Filt Rate - Afr Amer 69 mL/min (>60); Estimated Creatinine Clearance 67.39 ml/min; Glucose 95 mg/dL (74-106); High Density Lipoprotein 51 mg/dL; Sodium Level 145 mmol/L (136-145); Triglycerides 133 mg/dL; Very Low Density Lipoprotein 27 mg/dL (5-40)
[2019-01-28] MEDS: Enoxaparin 150 MG/ML Syringe SC ×2 (09:30→21:22)
[2019-01-28] MEDS: traMADol 50 MG Tablet PO ×2 (09:31→21:22)
[2019-01-28] MEDS: Smz/Tmp Ds Tablet 1 TABLET PO ×2 (09:31→21:22)
--- NOTE | 2019-01-28 11:01 | PCM.PN.HOSP ---
Patient Problems: Active and Suspected Problems Atrial fibrillation (Acute) KANU (obstructive sleep apnea) (Suspected) Subjective: Feels better than when she came in, though she is still tachycardic she does not feel any palpitations Vitals/I&O's: Vital Signs Temp Pulse Resp BP Pulse Ox 97.8 F 121 H 16 109/82 H 98 01/28/19 09:00 01/28/19 10:00 01/28/19 10:00 01/28/19 10:00 01/28/19 10:00 Oxygen Flow Rate (L/min) 0 Oxygen Delivery Method Room Air Weight: 326 lb 11.601 oz Body Mass Index (BMI) 47.5 Intake and Output for Last 24 Hours 01/26/19 01/27/19 01/28/19 23:59 23:59 23:59 Intake Total 240 / 1663 2034 Balance 240 / 3 2034 General: Alert, Oriented x3, Cooperative, No apparent distress HEENT: Atraumatic, PERRLA, EOMI, Normocephalic Oral: Moist Mucosa Neck: Supple, No JVD Lungs: Clear to auscultation, Normal air movement, No rhonchi, No wheeze, No rales, Diminished Cardiovascular: Normal S1, Normal S2, No murmurs, Tachycardic Abdomen: Soft, Non Tender, Non-Distended, No Hepato-splenomegaly Extremities: No edema, Capillary Refill Less than 3 Seconds Skin: No rashes, No breakdown Neurological: Neuro grossly intact, Sensory exam intact to light touch and pain Psych/Mental Status: Normal Affect, Appropriate Laboratory Results 01/27/19 13:02: WBC 7.7, RBC 4.45, Hgb 13.2, Hct 39.6, MCV 89.0, MCH 29.7, MCHC 33.3, RDW Std Deviation 40.9, RDW Coeff of Lily 12.5, Plt Count 291, MPV 10.8, Immature Gran % (Auto) 0.900, Neut % (Auto) 57.6, Lymph % (Auto) 30.4, [place] % (Auto) 7.6, Eos % (Auto) 2.7, Baso % (Auto) 0.8, Absolute Neuts (auto) 4.5, Absolute Lymphs (auto) 2.35, Nucleated RBC % 0 01/27/19 13:02: Sodium 141, Potassium 4.1, Chloride 110 H, Carbon Dioxide 22.0, Anion Gap 9, BUN 15, Creatinine 1.21 H, Estim Creat Clear Calc 60.15, Est GFR (MDRD) Af Amer 60, Est GFR (MDRD) Non-Af 50 L, BUN/Creatinine Ratio 12.4, Glucose 105, Calcium 9.0, Troponin I < 0.015 01/27/19 13:02: Magnesium 1.9, TSH 1.10 01/27/19 13:02: Lipase 336 01/27/19 16:23: Troponin I < 0.015 01/27/19 19:15: Troponin I < 0.015 01/27/19 22:20: Urine Opiates Screen NEGATIVE, Urine Methadone Screen NEGATIVE, Ur Barbiturates Screen NEGATIVE, Ur Phencyclidine Scrn NEGATIVE, Ur Amphetamines Screen NEGATIVE, U Methamphetamin-MDMA NEGATIVE, U Benzodiazepines Scrn NEGATIVE, Urine Cocaine Screen NEGATIVE, U Cannabinoids Screen NEGATIVE, Ur Drug Screen Comment 01/28/19 06:18: WBC 6.0, RBC 4.30, Hgb 12.6, Hct 37.9, MCV 88.1, MCH 29.3, MCHC 33.2, RDW Std Deviation 40.3, RDW Coeff of Lily 12.6, Plt Count 241, MPV 10.4, Immature Gran % (Auto) 0.800, Neut % (Auto) 49.2, Lymph % (Auto) 39.2, [place] % (Auto) 6.9, Eos % (Auto) 3.2, Baso % (Auto) 0.7, Absolute Neuts (auto) 2.9, Absolute Lymphs (auto) 2.33, Nucleated RBC % 0 01/28/19 06:18: Sodium 145, Potassium 4.0, Chloride 115 H, Carbon Dioxide 24.0, Anion Gap 6, BUN 13, Creatinine 1.08 H, Estim Creat Clear Calc 67.39, Est GFR (MDRD) Af Amer 69, Est GFR (MDRD) Non-Af 57 L, BUN/Creatinine Ratio 12.0, Glucose 95, Calcium 8.8, Triglycerides 133, Cholesterol 198, LDL Cholesterol 120, VLDL Cholesterol 27, HDL Cholesterol 51 Current Medications Acetaminophen (Tylenol) 650 mg PO Q6H PRN PRN PRN Reason: Non-cardiac pain (mod-severe) Hydrocodone Bitart/Acetaminophen ([place] 5mg-325mg) 1 - 2 tablet PO Q6H PRN PRN PRN Reason: MOD-SEVERE PAIN (4-10/10) Al Hydroxide/Mg Hydroxide (Mylanta Ii) 15 - 30 ml PO Q4H PRN PRN PRN Reason: INDIGESTION Albuterol Sulfate (Ventolin Aerosols) 2.5 mg INHALATION Q2H PRN PRN PRN Reason: dyspnea, wheezing Dextrose (D50w Syringe) 0 gm IV X1 PRN; Protocol PRN Reason: Hypoglycemia Diltiazem HCl (Cardizem) 30 mg PO Q6 [facility] Last Admin: 01/28/19 05:29 Dose: 30 mg Documented by: Doxycycline Monohydrate (Doxycycline) 100 mg PO TID [facility] Last Admin: 01/28/19 05:29 Dose: 100 mg Documented by: Enoxaparin Sodium (Lovenox) 150 mg SC Q12 [facility] Last Admin: 01/28/19 09:30 Dose: 150 mg Documented by: Glucagon () 1 mg IM .X1 PRN PRN Reason: Hypoglycemia Hydralazine HCl (Apresoline Iv) 10 mg IV Q4H PRN PRN PRN Reason: SBP > 160 Sodium Chloride () 1,000 mls @ 100 mls/hr IV .Q10H [facility] Last Admin: 01/28/19 01:56 Dose: 100 mls/hr Documented by: Amiodarone HCl/Dextrose (Nexterone 360 Mg/200 Ml Bag) 360 mg in 200 mls @ 16.667 mls/hr CONT INF .Q12H [facility] Stop: 01/28/19 16:29 Last Admin: 01/27/19 22:59 Dose: 16.667 mls/hr Documented by: Magnesium Hydroxide (Milk Of Magnesia) 30 ml PO DAILY PRN PRN Reason: Constipation Melatonin (Melatonin) 3 mg PO QHS PRN PRN PRN Reason: INSOMNIA Morphine Sulfate () 1 - 2 mg IV Q4H PRN PRN PRN Reason: PAIN Nicotine (Nicoderm Cq (Pbkc)) 14 mg TRANSDERM. DAILY [facility] Last Admin: 01/28/19 09:30 Dose: 14 mg Documented by: Nitroglycerin (Nitrostat) 0.4 mg SUBLINGUAL Q5M PRN PRN Reason: CARDIAC/CHEST PAIN Ondansetron HCl (Zofran) 4 mg IV Q8H PRN PRN PRN Reason: NAUSEA/VOMITING Sodium Chloride () 10 - 40 ml IV UD PRN PRN Reason: SALINE FLUSH Last Admin: 01/28/19 05:29 Dose: 10 ml Documented by: Tramadol HCl (Ultram) 50 mg PO BID [facility] Last Admin: 01/28/19 09:31 Dose: 50 mg Documented by: Trimethoprim/Sulfamethoxazole (Bactrim Ds) 1 tablet PO BID [facility] Last Admin: 01/28/19 09:31 Dose: 1 tablet Documented by: Medical Necessity - Tobacco Use Smoking Status: Current every day smoker Tobacco Use: Cigarettes Assessment/Plan All Active Problems Atrial fibrillation (Acute) Septic arthritis of knee, right (Acute) 1. New onset paroxysmal A. fib with chest pain -She was given initially a Cardizem bolus which she did not tolerate and was therefore switched to an amiodarone drip -Appreciate cardiology assistance -Continue with Cardizem 30 mg p.o. 4 times daily, monitor blood pressure and adjust as appropriate -Continue with digoxin -Echo read pending -Heart rate is still in the 120s 2. Epigastric pain -He has been taking frequent NSAIDs and therefore was started on twice daily PPI -On discharge can likely transition to daily PPI dosing -Could be possible gastritis, however it was associate with her chest pain 3. Lyme disease -She is seeing a specialist in [place] for this -On doxycycline 3 times daily as well as Bactrim 3 times daily -These were continued as an inpatient 4. Morbid obesity/suspected KANU -BMI of 47 -Discussed weight loss strategies including diet and exercise -Discussed that she will need to have a sleep study as an outpatient DVT: Lovenox Code Visit Inpatient E&M: 93380 Subs Hosp L2
--- NOTE | 2019-01-28 13:25 | CASEMGMT ---
RN CM Assessment Presentation: Afib Intro role of CM and purpose of RN CM assessment to patient in room. Pt is awake, alert, able to participate in assessment. Demographics, PCP and Pharmacy verified. Pt states she lives alone with her pets. States is independent, denies care needs. Pt became tearful, states she is so stressed. RN CM offered emotional support as pt spoke of home stress re: son and custody dispute. RN CM offered to have SW speak with pt and she felt this would be helpful. -Discussed pt's smoking. She admits to approx 1/2 pack a day. Discussed goals including reducing daily amount as pt stated I can't just stop. PCP: Dr. Hurtado Specialists: Dr. Anne Preferred Pharmacy: [facility] Insurance: [place] Prescription Benefit: yes LNOK: SonJoshua Living Arrangements: Lives alone in one story home. No care needs identified at this time. Transportation: Pt drives DME: [employer], [employer]- states she does not use @ this time. HHC: none MICHELLE Referral: update given to MICHELLE Wright Patient DC goals: Home DC PLAN: Home Maikel KATHLEEN RN ACM
--- NOTE | 2019-01-28 15:07 | PN.CARD_ITS ---
Subjectve: Patient is feeling better. No chest pain, shortness of breath, palpitations. Heart rate is slightly better but still elevated. Objective: Vital Signs Temp Pulse Resp BP Pulse Ox 97.5 F L 109 H 18 119/89 H 98 01/28/19 11:00 01/28/19 12:00 01/28/19 12:00 01/28/19 12:00 01/28/19 12:00 Oxygen Flow Rate (L/min) 0 Oxygen Delivery Method Room Air Weight: 326 lb 11.601 oz Body Mass Index (BMI) 47.5 Intake and Output for Last 24 Hours 01/26/19 01/27/19 01/28/19 23:59 23:59 23:59 Intake Total 240 / 1663 3378.3 / 3378.3 Balance 240 / 1663 3378.3 / 3378.3 General: Awake, Alert, Oriented x 3 HEENT: Atraumatic Oral: Moist Mucosa Neck: Supple Lungs: Clear to auscultation Cardiovascular: Normal S1, Normal S2 Abdomen: Soft Skin: No Rashes Psych/Mental Status: Appropriate 01/27/19 13:02: Magnesium 1.9 01/27/19 16:23: Troponin I < 0.015 01/27/19 19:15: Troponin I < 0.015 01/28/19 06:18: WBC 6.0, RBC 4.30, Hgb 12.6, Hct 37.9, MCV 88.1, MCH 29.3, MCHC 33.2, Plt Count 241, MPV 10.4, Immature Gran % (Auto) 0.800, Neut % (Auto) 49.2, Lymph % (Auto) 39.2, [place] % (Auto) 6.9, Eos % (Auto) 3.2, Baso % (Auto) 0.7, Absolute Neuts (auto) 2.9, Nucleated RBC % 0 01/28/19 06:18: Sodium 145, Potassium 4.0, Chloride 115 H, Carbon Dioxide 24.0, Anion Gap 6, BUN 13, Creatinine 1.08 H, Est GFR (MDRD) Af Amer 69, Est GFR (MDRD) Non-Af 57 L, BUN/Creatinine Ratio 12.0, Glucose 95, Calcium 8.8, Triglycerides 133, Cholesterol 198, LDL Cholesterol 120, VLDL Cholesterol 27, HDL Cholesterol 51 Rhythm: EKG: ECHO: Stress Test: Cardiac Cath: PCI: CT Surgery: Holter monitor: EPS: PPM: CXR: Chest CT Scan: Medical Necessity - Tobacco Use Smoking Status: Current every day smoker Tobacco Use: Cigarettes Assessment/Plan 1. A flutter: Patient did not tolerate the 20 mg IV bolus of Cardizem in the emergency room. Patient is on IV amiodarone which will be done this evening. She was given 3 doses of digoxin of which the first dose was only 62.5 mcg. She is on Cardizem 30 mg p.o. every 6 hours. She is tolerating this. We will increase the Cardizem and add digoxin to 50 mcg daily. 2. Chest pain: Appears to be related to her a flutter with rapid ventricular response. If patient has chest discomfort with controlled ventricular response then we will consider further work-up.
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
[2019-01-28] MEDS: Digoxin 250 MCG Tablet PO (16:38)
[2019-01-28] MEDS: dilTIAZem 60 MG Tablet PO ×2 (18:47→23:22)
[2019-01-29 03:00] VITALS: PULSE 88
[2019-01-29 05:00] VITALS: BP 104/49; PULSE 78; RESP 16; TEMP 36.5; O2SAT 99
[2019-01-29] MEDS: Doxycycline 100 MG CAPSULE PO (05:05)
[2019-01-29] MEDS: dilTIAZem 60 MG Tablet PO (05:06)
[2019-01-29 07:00] VITALS: PULSE 117
[2019-01-29 07:51] VITALS: O2SAT 95
--- NOTE | 2019-01-29 09:32 | PCM.PN.HOSP ---
Patient Problems: Active and Suspected Problems Atrial fibrillation (Acute) KANU (obstructive sleep apnea) (Suspected) Subjective: Feeling much better today, denies any palpitations, lightheadedness, dizziness, or chest pain. Vitals/I&O's: Vital Signs Temp Pulse Resp BP Pulse Ox 97.7 F L 117 H 16 104/49 L 95 01/29/19 05:00 01/29/19 07:00 01/29/19 05:00 01/29/19 05:00 01/29/19 07:51 Oxygen Flow Rate (L/min) 0 Oxygen Delivery Method Room Air Weight: 326 lb 11.601 oz Body Mass Index (BMI) 47.5 Intake and Output for Last 24 Hours 01/27/19 01/28/19 01/29/19 23:59 23:59 23:59 Intake Total 240 / 1663 4670.5 / 4910.5 480 / 480 Balance 240 / 1663 4670.5 / 4910.5 480 / 480 General: Alert, Oriented x3, Cooperative, No apparent distress HEENT: Atraumatic, PERRLA, EOMI, Normocephalic Oral: Moist Mucosa Neck: Supple, No JVD Lungs: Clear to auscultation, Normal air movement, No rhonchi, No wheeze, No rales, Diminished Cardiovascular: Regular rate, regular rhythm, normal S1, Normal S2, No murmurs Abdomen: Soft, Non Tender, Non-Distended, No Hepato-splenomegaly Extremities: No edema, Capillary Refill Less than 3 Seconds Skin: No rashes, No breakdown Neurological: Neuro grossly intact, Sensory exam intact to light touch and pain Psych/Mental Status: Normal Affect, Appropriate Current Medications Acetaminophen (Tylenol) 650 mg PO Q6H PRN PRN PRN Reason: Non-cardiac pain (mod-severe) Hydrocodone Bitart/Acetaminophen ([place] 5mg-325mg) 1 - 2 tablet PO Q6H PRN PRN PRN Reason: MOD-SEVERE PAIN (4-10/10) Al Hydroxide/Mg Hydroxide (Mylanta Ii) 15 - 30 ml PO Q4H PRN PRN PRN Reason: INDIGESTION Albuterol Sulfate (Ventolin Aerosols) 2.5 mg INHALATION Q2H PRN PRN PRN Reason: dyspnea, wheezing Dextrose (D50w Syringe) 0 gm IV X1 PRN; Protocol PRN Reason: Hypoglycemia Digoxin (Lanoxin) 250 mcg PO DAILY [facility] Last Admin: 01/28/19 16:38 Dose: 250 mcg Documented by: Diltiazem HCl (Cardizem) 60 mg PO Q6 [facility] Last Admin: 01/29/19 05:06 Dose: 60 mg Documented by: Doxycycline Monohydrate (Doxycycline) 100 mg PO TID [facility] Last Admin: 01/29/19 05:05 Dose: 100 mg Documented by: Enoxaparin Sodium (Lovenox) 150 mg SC Q12 [facility] Last Admin: 01/28/19 21:22 Dose: 150 mg Documented by: Glucagon () 1 mg IM .X1 PRN PRN Reason: Hypoglycemia Hydralazine HCl (Apresoline Iv) 10 mg IV Q4H PRN PRN PRN Reason: SBP > 160 Lactobacillus Acidophilus (Acidophilus) 2 tablet PO TID [facility] Last Admin: 01/29/19 06:40 Dose: 2 tablet Documented by: Magnesium Hydroxide (Milk Of Magnesia) 30 ml PO DAILY PRN PRN Reason: Constipation Melatonin (Melatonin) 3 mg PO QHS PRN PRN PRN Reason: INSOMNIA Morphine Sulfate () 1 - 2 mg IV Q4H PRN PRN PRN Reason: PAIN Nicotine (Nicoderm Cq (Pbkc)) 14 mg TRANSDERM. DAILY [facility] Last Admin: 01/28/19 09:30 Dose: 14 mg Documented by: Nitroglycerin (Nitrostat) 0.4 mg SUBLINGUAL Q5M PRN PRN Reason: CARDIAC/CHEST PAIN Ondansetron HCl (Zofran) 4 mg IV Q8H PRN PRN PRN Reason: NAUSEA/VOMITING Sodium Chloride () 10 - 40 ml IV UD PRN PRN Reason: SALINE FLUSH Last Admin: 01/28/19 05:29 Dose: 10 ml Documented by: Tramadol HCl (Ultram) 50 mg PO BID [facility] Last Admin: 01/28/19 21:22 Dose: 50 mg Documented by: Trimethoprim/Sulfamethoxazole (Bactrim Ds) 1 tablet PO BID [facility] Last Admin: 01/28/19 21:22 Dose: 1 tablet Documented by: Medical Necessity - Tobacco Use Smoking Status: Current every day smoker Tobacco Use: Cigarettes Assessment/Plan All Active Problems Atrial fibrillation (Acute) Septic arthritis of knee, right (Acute) 1. New onset paroxysmal A. fib with chest pain -She was given initially a Cardizem bolus which she did not tolerate and was therefore switched to an amiodarone drip, which has been discontinued -Appreciate cardiology assistance -She was increased to Cardizem 60 mg p.o. 4 times daily which she is also been tolerating with her blood pressure. -Continue with digoxin, per cardiology -Echo with an EF of 60% and normal diastolic function -Heart rate is much better controlled mostly in the 70s to 80s -She is also on therapeutic Lovenox which will be transition to either Eliquis or Xarelto on discharge 2. Epigastric pain -He has been taking frequent NSAIDs and therefore was started on twice daily PPI -On discharge can likely transition to daily PPI dosing -Could be possible gastritis, however it was associate with her chest pain 3. Lyme disease -She is seeing a specialist in [place] for this -On doxycycline 3 times daily as well as Bactrim 3 times daily -These were continued as an inpatient 4. Morbid obesity/suspected KANU -BMI of 47 -Discussed weight loss strategies including diet and exercise -Discussed that she will need to have a sleep study as an outpatient DVT: Lovenox Code Visit Inpatient E&M: 89035 Subs Hosp L2
[2019-01-29 09:45] VITALS: BP 110/76; PULSE 86; RESP 16; TEMP 36.6; O2SAT 100
--- NOTE | 2019-01-29 10:13 | PCM.PN.CARD ---
Subjectve: Reports no symptoms. Heart rate is reasonably well controlled. Objective: Vital Signs Temp Pulse Resp BP Pulse Ox 97.8 F 86 16 110/76 100 01/29/19 09:45 01/29/19 09:45 01/29/19 09:45 01/29/19 09:45 01/29/19 09:45 Oxygen Flow Rate (L/min) 0 Oxygen Delivery Method Room Air Weight: 148.2 kg Body Mass Index (BMI) 47.5 Intake and Output for Last 24 Hours 01/27/19 01/28/19 01/29/19 23:59 23:59 23:59 Intake Total 240 / 1663 4670.5 / 4910.5 480 / 480 Balance 240 / 1663 4670.5 / 4910.5 480 / 480 General: Awake, Alert, Oriented x 3 HEENT: PERRL, EOMI, Sclera Non Icteric Neck: Supple, Good ROM, No Lymph Node Enlargement Lungs: Clear to auscultation Cardiovascular: Regular Rhythm, Irregular Rhythm, Normal S1, Normal S2, No Murmurs, No Rubs, No Gallops Vascular: No Carotid Bruits, Normal Femoral Pulses, Normal Radial Pulses, Normal Dorsalis Pedal Pulse, Normal Posterior Tibial Pulses Abdomen: Bowel Sounds Present, Soft, Non Tender, No HSM, No Organomegaly Extremities: No Cyanosis, No Clubbing, No edema Neurological: No Focal Motor or Sensory Deficit Rhythm: EKG: ECHO: Stress Test: Cardiac Cath: PCI: CT Surgery: Holter monitor: EPS: PPM: CXR: Chest CT Scan: Medical Necessity - Tobacco Use Smoking Status: Current every day smoker Tobacco Use: Cigarettes Assessment/Plan Persistent atrial fibrillation. Rate is well controlled. The patient is asymptomatic. I will switch her to Cardizem CD 240 mg once a day for better convenience. Digoxin to be continued at the same dose. Based on the [id number] vasc risk score, she does not qualify for chronic anticoagulation. We will sign off. Outpatient follow-up with cardiology in the office. Code Visit Inpatient E&M: 33608 Subs Hosp L2
[2019-01-29] MEDS: Smz/Tmp Ds Tablet 1 TABLET PO (10:42)
[2019-01-29] MEDS: traMADol 50 MG Tablet PO (10:42)
[2019-01-29] MEDS: Digoxin 250 MCG Tablet PO (10:42)
--- NOTE | 2019-01-29 10:44 | PCM.DC.SUM ---
Discharge Date and Diagnosis - Problem List Patient Problems: Active and Suspected Problems Atrial fibrillation (Acute) KANU (obstructive sleep apnea) (Suspected) Date of Admission: 01/27/19 Date of Discharge: 01/29/19 - Primary Discharge Diagnosis Active and Suspected Problems Atrial fibrillation (Acute) KANU (obstructive sleep apnea) (Suspected) - Secondary Discharge Diagnosis Chronic Problems Morbid obesity (Chronic) Tobacco use (Chronic) Lyme disease (Chronic) History of pancreatitis (Chronic) GERD (gastroesophageal reflux disease) (Chronic) Hospital Course and Treatment Imaging Results: CXR: IMPRESSION: Normal x-ray examination of the chest. Echo: Interpretation Summary Diluted definity 3ml given slow IV push to enhance endocardial definition. The study was technically difficult. Contrast injection was performed. The estimated ejection fraction is 60 %. Normal diastology for age. The study was technically difficult. Contrast injection was performed. Consults: Cardiology Operations: None Procedures: 2-D Echocardiogram Summary of Care Provided: Per HPI: The patient is a 48 y/o F w/ PMHx: Morbid obesity, suspected KANU, GERD, history of prior pancreatitis, Lyme disease with ongoing dual antibiotic therapy for specialist in [place], tobacco use who presents to the [facility] on 01/27/19 with history of onset of chest discomfort midsternal as well as between her scapula otherwise nonradiating described as a dull, constant ongoing 3-5 out of 10 starting the evening prior however continued today with then onset of more chest tightness and sensation of racing heart with also upper abdominal mild discomfort with self watch vital signs with tachycardia and elevated blood pressure prompting eventual ED presentation. Work-up in the ED included T 98.2, heart rate 143, BP 118/97, respiratory rate 20, 94% on room air, CBC unremarkable, BMP with chloride 110, BUN 15, creatinine 1.21, troponin less than 0.015, EKG with atrial fibrillation with RVR. In the ED patient ministered therapeutic Lovenox x1, Cardizem 20 mg IV bolus with then onset of hypotension with eventual improvement with then attempt of oral digoxin administration given ongoing RVR without market improvement. Hospital Course: 1. New onset paroxysmal A. fib with chest pain -She was given initially a Cardizem bolus which she did not tolerate and was therefore switched to an amiodarone drip, which has been discontinued -Appreciate cardiology assistance -She was increased to Cardizem 60 mg p.o. 4 times daily which she is also been tolerating with her blood pressure, and she was discharged on Cardizem 240 mg daily -Continue with digoxin, per cardiology, she will need to follow-up with both cardiology and her PCP as an outpatient -Echo with an EF of 60% and normal diastolic function -Heart rate is much better controlled mostly in the 70s to 80s -She is a chads VASC of 1 and therefore not warrant any anticoagulation 2. Epigastric pain -She has been taking frequent NSAIDs and therefore was started on twice daily PPI -She is on lansoprazole as an outpatient which she can continue on discharge 3. Lyme disease -She is seeing a specialist in [place] for this -On doxycycline 3 times daily as well as Bactrim 3 times daily -These were continued as an inpatient 4. Morbid obesity/suspected KANU -BMI of 47 -Discussed weight loss strategies including diet and exercise -Discussed that she will need to have a sleep study as an outpatient Patient Problems: Active and Suspected Problems Atrial fibrillation (Acute) KANU (obstructive sleep apnea) (Suspected) - Physical Exam Vital Signs Temp Pulse Resp BP Pulse Ox 97.8 F 86 16 110/76 100 01/29/19 09:45 01/29/19 09:45 01/29/19 09:45 01/29/19 09:45 01/29/19 09:45 Oxygen Flow Rate (L/min) 0 Oxygen Delivery Method Room Air Weight: 326 lb 11.601 oz Body Mass Index (BMI) 47.5 Intake and Output for Last 24 Hours 01/27/19 01/28/19 01/29/19 23:59 23:59 23:59 Intake Total 240 / 1663 4670.5 / 4910.5 480 / 480 Balance 240 / 1663 4670.5 / 4910.5 480 / 480 Home Medications: Medications to take at Discharge Etodolac 400 mg PO BID 01/04/17 Ascorbic Acid [Vitamin C] 1,000 mg PO BIDCM 01/27/19 Doxycycline Hyclate 100 mg PO TID 01/27/19 Lansoprazole 15 mg NG DAILY 01/27/19 Smz/Tmp Ds [Bactrim Ds] 1 tab PO BID 01/27/19 Turmeric Root Extract [Turmeric] 500 mg PO BID 01/27/19 Vitamin B Complex [B Complex] 1 tab PO DAILY 01/27/19 traMADol [Ultram] 50 mg PO BID 01/27/19 Digoxin [Lanoxin] 250 mcg PO DAILY #30 tab 01/29/19 Diltiazem CD [Cardizem CD] 240 mg PO DAILY #30 cap 01/29/19 Following Prescrptions Were Given to Patient: Diltiazem CD [Cardizem CD] 240 mg PO DAILY #30 cap Transmission Status: Pending to [facility] Digoxin [Lanoxin] 250 mcg PO DAILY #30 tab Transmission Status: Pending to [facility] Primary Care Physician: Mark Hurtado MD [Primary Care Provider] - Please follow up with your Primary Care Physician in: 3-5 days Please Follow Up With: Cardiology When: 2 weeks Disposition: Home Minutes spent on discharge:: 35 Patient Condition:: Stable Medical Necessity - Tobacco Use Smoking Status: Current every day smoker Tobacco Use: Cigarettes Meaningful Use Info Meaningful Use Diagnoses (Choose all that apply): None applicable Code Visit Inpatient E&M: 07359 Disch Hosp
--- NOTE | 2019-01-29 10:50 | DCINST_ITS ---
- Discharge Diagnoses Current Active Problems: Current Active and Chronic Problems Atrial fibrillation (Acute) Morbid obesity (Chronic) Tobacco use (Chronic) Lyme disease (Chronic) History of pancreatitis (Chronic) You will use the following diet at home:: Calorie/Carbohydrate Controlled (specify 1200, 1400, etc) - 1800, Cardiac Your food should be the consistency of: Regular Your liquids should be the consistency of: Regular/Thin Discharge Activity: Return to Normal Activity, No Restrictions Call your doctor if you observe: Fever of 101 or Higher, Shortness of breath, Dizziness, Fainting spells, Swelling in the ankles, Chest pain, Increased palpitations (irregular heartbeat) Allergies/Adverse Reactions: Allergies penicillin Allergy (Intermediate, Verified 01/27/19 12:58) Swelling Medications to take at Discharge Etodolac 400 mg PO BID 01/04/17 Ascorbic Acid [Vitamin C] 1,000 mg PO BIDCM 01/27/19 Doxycycline Hyclate 100 mg PO TID 01/27/19 Lansoprazole 15 mg NG DAILY 01/27/19 Smz/Tmp Ds [Bactrim Ds] 1 tab PO BID 01/27/19 Turmeric Root Extract [Turmeric] 500 mg PO BID 01/27/19 Vitamin B Complex [B Complex] 1 tab PO DAILY 01/27/19 traMADol [Ultram] 50 mg PO BID 01/27/19 Digoxin [Lanoxin] 250 mcg PO DAILY #30 tab 01/29/19 Diltiazem CD [Cardizem CD] 240 mg PO DAILY #30 cap 01/29/19 The following prescriptions were given: Diltiazem CD [Cardizem CD] 240 mg PO DAILY #30 cap Transmission Status: Pending to [facility] Digoxin [Lanoxin] 250 mcg PO DAILY #30 tab Transmission Status: Pending to [facility] Primary Care Physician: Mark Hurtado MD [Primary Care Provider] - Please follow up with your Primary Care Physician in: 3-5 days Test Results: Test results from this visit will be discussed in further detail at your follow- up appointment, if applicable. Please Follow Up With: Cardiology When: 2 weeks
== END 2019-01-29 12:09 | disposition home or self-care (01) | DRG 309 ==
LOC: ED 14:04 → PCU 15:27
PROVIDERS: Admitting Provider Family Medicine; Emergency Provider Emergency Medicine; Family Provider Family Medicine; PCP Family Medicine; Referring Provider Family Medicine; Visit Provider Family Medicine
DX: I48.0 Paroxysmal atrial fibrillation (principal); A69.20 Lyme disease, unspecified; Z68.42 Body mass index [BMI] 45.0-49.9, adult; I95.9 Hypotension, unspecified; E66.01 Morbid (severe) obesity due to excess calories; G47.33 Obstructive sleep apnea (adult) (pediatric); K21.9 Gastro-esophageal reflux disease without esophagitis; F17.210 Nicotine dependence, cigarettes, uncomplicated; Z79.2 Long term (current) use of antibiotics; Z79.1 Long term (current) use of non-steroidal anti-inflammatories (NSAID); Z79.899 Other long term (current) drug therapy; Z87.19 Personal history of other diseases of the digestive system; Z88.0 Allergy status to penicillin
CPT/HCPCS: 36415; 71045; 80048; 80061; 80307; 83690; 83735; 84443; 84484; 85025; 93005; 93306; 94762; 97802; 99285; 99406; J7030; Q9957; A4216; C8929; J0153

== ENCOUNTER → 2019-04-01 16:37 | Outpatient (CLI) | payer BC, SELFPAY ==
[2019-01-27 12:51] VITALS: BMI 47.5
[2019-04-01 18:50] LABS: Free T3 2.9 pg/mL (2.18-3.98); Iron 59 ug/dL (50-170); Iron Binding Capacity,Total 346 ug/dL (250-450); PERCENT IRON SATURATION 17.1 % (15.0-55.0); T4 Free Direct 1.22 ng/dL (0.76-1.46)
[2019-04-01 18:51] LABS: T3 Total - Triiodothyronine 1.38 ng/mL (0.6-1.81)
[2019-04-06 17:36] LABS: Thyroid Stim Immunoglob <0.10 IU/L (0.00-0.55)
[2019-04-06 18:13] LABS: Anti-Thyroglobulin AB < 1.0 IU/mL (0.0-0.9); T3 Reverse 29.4 ng/dL (9.2-24.1); Thyroglobulin, Serum Qt. 75.6 ng/mL (1.5-38.5); Thyroid Peroxidase AB 12 IU/mL (0-34)
== END ==
PROVIDERS: Family Provider Family Medicine; PCP Family Medicine; Referring Provider Family Medicine
DX: R53.82 Chronic fatigue, unspecified (principal); E55.9 Vitamin D deficiency, unspecified
CPT/HCPCS: 36415; 83540; 83550; 84432; 84439; 84445; 84480; 84481; 84482; 86376; 86800

== ENCOUNTER → 2019-10-13 15:37 | Outpatient (CLI) | payer BC, SELFPAY ==
[2019-01-27 12:51] VITALS: BMI 47.5
[2019-10-13 17:35] LABS: Absolute Lymphocyte Count 1.96 X10^3/uL (0.83-4.51); Basophil# 0.05 X10^3/uL; Basophil% 0.6 % (0-1); Eosinophil# 0.28 X10^3/uL; Eosinophils% 3.6 % (0-5); Hematocrit 37.8 % (37-47); Hemoglobin 11.9 g/dL (12.0-15.0); Lymphocyte # 1.96 X10^3/ul (4.0); Lymphocyte % 24.9 % (19-41); Mean Corp Hgb Conc 31.5 g/dL (32-36); Mean Corpuscular Volume 85.7 fL (81-99); Mean Platelet Vol. 12.5 fl (6.2-12.0); Monocyte# 0.54 X10^3/uL; Monocyte% 6.9 % (0-10); NRBC Flagged by Analyzer 0 % (0-5); Neutrophil # 4.98 X10^3/uL (2.7-7.7); Neutrophil % 63.2 % (47-70); Platelet Count 284 K/mm3 (150-450); RBC Distribution Width CV 13.3 % (11.6-14.6); RBC Distribution Width SD 41.8 fl (35.1-43.9); Red Blood Count 4.41 M/mm3 (4.2-5.4); White Blood Count 7.9 K/mm3 (4.4-11.0)
[2019-10-13 17:50] LABS: T3 Total - Triiodothyronine 1.72 ng/mL (0.6-1.81)
[2019-10-13 18:00] LABS: AST(SGOT) 12 U/L (15-37); Alanine Aminotransfer ALT/SGPT 20 U/L (13-56); Albumin, Serum 3.6 g/dL (3.2-5.0); Alkaline Phosphatase 120 U/L (45-117); Anion Gap 8 (5-15); BUN 17 mg/dL (7-18); BUN/Creat Ratio 17.7 RATIO (10-20); Calcium,Total 8.9 mg/dL (8.5-10.1); Chloride 107 mmol/L (98-107); Creatinine, Serum 0.96 mg/dL (0.55-1.02); EST Glomerular Filtration Rate 65 mL/min (>60); Est Glom Filt Rate - Afr Amer 79 mL/min (>60); Free T3 3.5 pg/mL (2.18-3.98); Globulin 3.7 g/dL (2.2-4.2); Glucose 103 mg/dL (74-106); Potassium 3.8 mmol/L (3.5-5.1); Protein, Total 7.3 g/dL (6.4-8.2); Sodium Level 140 mmol/L (136-145); T4 Free Direct 0.84 ng/dL (0.76-1.46); Thyroid Stim Hormone (TSH) 0.35 uIU/mL (0.358-3.74)
[2019-10-13 18:11] LABS: Erythrocyte Sedimentation Rate 13 mm/hr (0-30)
[2019-10-17 05:04] LABS: T3 Reverse 18.2 ng/dL (9.2-24.1)
[2019-10-17 12:07] LABS: SJOGREN'S Anti-SS-A test < 0.2 AI (0.0-0.9)
[2019-10-17 14:49] LABS: SJOGREN'S Anti-SS-B test < 0.2 AI (0.0-0.9)
== END ==
LOC: MFPLAB 15:40
PROVIDERS: PCP Family Medicine
DX: E06.3 Autoimmune thyroiditis (principal); E03.9 Hypothyroidism, unspecified; R68.2 Dry mouth, unspecified
CPT/HCPCS: 36415; 80053; 84439; 84443; 84480; 84481; 84482; 85025; 85652; 86235

== ENCOUNTER → 2020-04-12 14:31 | Outpatient (CLI) | payer BC, SELFPAY ==
[2019-01-27 12:51] VITALS: BMI 47.5
[2020-04-12 17:48] LABS: Hematocrit 38.7 % (37-47); Hemoglobin 12.3 g/dL (12.0-15.0); Mean Corp Hgb Conc 31.8 g/dL (32-36); Mean Corpuscular Hgb 28.3 pg (27.0-32.0); Mean Platelet Vol. 14.2 fl (6.2-12.0); Platelet Count 276 K/mm3 (150-450); RBC Distribution Width CV 13.2 % (11.6-14.6); RBC Distribution Width SD 42.8 fl (35.1-43.9); Red Blood Count 4.35 M/mm3 (4.2-5.4); White Blood Count 7.5 K/mm3 (4.4-11.0)
[2020-04-12 18:07] LABS: ALB/GLOB Ratio 0.9 RATIO (0.9-2.4); AST(SGOT) 17 U/L (15-37); Alanine Aminotransfer ALT/SGPT 27 U/L (13-56); Albumin, Serum 3.7 g/dL (3.2-5.0); Alkaline Phosphatase 134 U/L (45-117); Anion Gap 5 (5-15); BUN 18 mg/dL (7-18); BUN/Creat Ratio 13.6 RATIO (10-20); Calcium,Total 9.3 mg/dL (8.5-10.1); Chloride 108 mmol/L (98-107); Cholesterol 224 mg/dL (200); Creatinine, Serum 1.32 mg/dL (0.55-1.02); EST Glomerular Filtration Rate 45 mL/min (>60); Est Glom Filt Rate - Afr Amer 54 mL/min (>60); Globulin 3.9 g/dL (2.2-4.2); Glucose 112 mg/dL (74-106); High Density Lipoprotein 54 mg/dL; Protein, Total 7.6 g/dL (6.4-8.2); Sodium Level 139 mmol/L (136-145); Thyroid Stim Hormone (TSH) 0.33 uIU/mL (0.358-3.74); Triglycerides 231 mg/dL; Very Low Density Lipoprotein 46 mg/dL (5-40)
[2020-04-13 17:24] LABS: T3 Total - Triiodothyronine 1.55 ng/mL (0.6-1.81)
[2020-04-13 17:33] LABS: Free T3 3.5 pg/mL (2.18-3.98); T4 Free Direct 0.95 ng/dL (0.76-1.46)
[2020-04-21 10:32] LABS: T3 Reverse 18.5 ng/dL (9.2-24.1)
== END ==
PROVIDERS: PCP Family Medicine; Referring Provider Family Medicine; Visit Provider Family Medicine
DX: E06.3 Autoimmune thyroiditis (principal); E07.81 Sick-euthyroid syndrome; R53.82 Chronic fatigue, unspecified
CPT/HCPCS: 36415; 80053; 80061; 84439; 84443; 84480; 84481; 84482; 85027

== ENCOUNTER → 2020-10-04 14:20 | Outpatient (CLI) | payer SELFPAY ==
[2019-01-27 12:51] VITALS: BMI 47.5
[2020-10-04 18:40] LABS: Free T3 3.5 pg/mL (2.18-3.98); Thyroid Stim Hormone (TSH) 0.72 uIU/mL (0.358-3.74)
== END ==
PROVIDERS: PCP Family Medicine
DX: R53.82 Chronic fatigue, unspecified (principal); E06.3 Autoimmune thyroiditis; E07.81 Sick-euthyroid syndrome
CPT/HCPCS: 36415; 84439; 84443; 84480; 84481; 84482

== ENCOUNTER → 2021-04-09 14:41 | Outpatient (CLI) | payer SELFPAY ==
[2021-04-09 18:03] LABS: T3 Total - Triiodothyronine 1.48 ng/mL (0.6-1.81)
[2021-04-09 18:27] LABS: Free T3 3.6 pg/mL (2.18-3.98); T4 Free Direct 0.83 ng/dL (0.76-1.46); Thyroid Stim Hormone (TSH) 0.72 uIU/mL (0.358-3.74)
[2021-04-13 21:08] LABS: T3 Reverse 21.2 ng/dL (9.2-24.1)
== END ==
PROVIDERS: PCP Family Medicine; Referring Provider Family Medicine
DX: E07.81 Sick-euthyroid syndrome (principal); R53.82 Chronic fatigue, unspecified; E06.3 Autoimmune thyroiditis
CPT/HCPCS: 36415; 84439; 84443; 84480; 84481; 84482

== ENCOUNTER → 2021-10-01 15:07 | Outpatient (CLI) | payer SELFPAY ==
[2021-10-01 17:54] LABS: T3 Total - Triiodothyronine 1.56 ng/mL (0.6-1.81)
[2021-10-01 17:58] LABS: Free T3 3.4 pg/mL (2.18-3.98); T4 Free Direct 0.91 ng/dL (0.76-1.46); Thyroid Stim Hormone (TSH) 0.71 uIU/mL (0.358-3.74)
[2021-10-16 09:54] LABS: T3 Reverse 23.4 ng/dL (9.2-24.1)
== END ==
LOC: MFPLAB 15:09
PROVIDERS: PCP Family Medicine
DX: E06.3 Autoimmune thyroiditis (principal); R53.82 Chronic fatigue, unspecified; E07.81 Sick-euthyroid syndrome
CPT/HCPCS: 36415; 84439; 84443; 84480; 84481; 84482

== ENCOUNTER 2022-01-23 13:21 | Emergency (ER) | payer OTHER, SELFPAY ==
[2022-01-23] VITALS (11 sets, daily range): BP systolic 125–178; BP diastolic 77–109; PULSE 67–138; RESP 15–20; TEMP 35.6; O2SAT 97–99; BMI 51.6
--- NOTE | 2022-01-23 13:32 | EKG12_ITS ---
Test Reason : palpitations Blood Pressure : / mmHG Vent. Rate : 136 BPM Atrial Rate : 136 BPM P-R Int : 150 ms QRS Dur : 080 ms QT Int : 284 ms P-R-T Axes : 042 009 059 degrees QTc Int : 427 ms Atrial Flutter Low voltage QRS Possible Anterolateral infarct , age undetermined, cannot be excluded Abnormal ECG Confirmed by OZZY MCCLAIN, MELVI ([id number]), newspaper copy editor TAE REDDING ([id number]) on 01/24/2022 1:45:36 PM Referred By: Sepideh Confirmed By:MELVI PRECIADO MD
--- NOTE | 2022-01-23 13:35 | EX.ED.DYSGE1 ---
HPI History of Present Illness Chief Complaint: Palpitations Detail of Chief Complaint: Patient with shortness of breath 30 minutes prior to presentation Informant: patient Onset/Context/Timing Onset: Hours (0.5 hours prior to presentation) Context: Sudden Onset Timing: Continuous Quality: Palpitations Location: Chest Current Severity: Mild Maximum Severity: Moderate Worsened by: Nothing Relieved by: Nothing Associated Symptoms Associated Symptoms: Shortness of breath Narrative Narrative: Patient is a 51-year-old morbidly obese woman with history of atrial flutter. She lists diltiazem and digoxin as her meds. She is on an aspirin a day. She is on no anticoagulant. She denies history of coronary disease. She denies history of PE or DVT. She denies leg pain, swelling discoloration. She states she is compliant with her medication. She denies orthostatic symptoms. She denies black or maroon-colored stool. She denies symptoms of hyperthyroidism. Prior similar symptoms: Yes Recent Illness/Hospitalization: No [facility] Medical History Atrial fibrillation GERD (gastroesophageal reflux disease) Home Medications etodolac 400 mg tablet 400 mg PO BID pain 01/04/17 [History Last Taken 01/27/19 400 mg] ascorbic acid (vitamin C) 1,000 mg tablet 1,000 mg PO BIDCM vitamin 01/27/19 [History Last Taken 01/27/19] doxycycline hyclate 100 mg capsule 100 mg PO TID antibiotic 01/27/19 [History Last Taken 01/27/19] lansoprazole 15 mg capsule,delayed release 15 mg NG DAILY reflux 01/27/19 [History Last Taken 01/27/19] sulfamethoxazole 800 mg-trimethoprim 160 mg tablet 1 tab PO BID antibiotic 01/27/19 [History Last Taken 01/27/19] tramadol 50 mg tablet 50 mg PO BID pain 01/27/19 [History Last Taken 01/27/19] turmeric root extract 500 mg capsule 500 mg PO BID supplement 01/27/19 [History Last Taken 01/27/19] vitamin B complex 1 tab PO DAILY vitamin 01/27/19 [History Last Taken 01/27/19] digoxin 250 mcg (0.25 mg) tablet 250 mcg PO DAILY #90 tabs 02/25/19 [Rx Last Taken Unknown] diltiazem HCl 240 mg capsule,extended release 24 hr 240 mg PO DAILY #90 caps 02/25/19 [Rx Last Taken Unknown] Allergy/AdvReac Type Severity Reaction Status Date / Time penicillin Allergy Intermediate Swelling Verified 01/23/22 13:21 Surgical History Gallbladder Removed Social History (Updated 01/23/22 @ 13:[address] Tommy Lopez MD) Smoking Status: Current every day smoker tobacco type: smokeless tobacco alcohol intake: current alcohol intake frequency: holidays/special occasions only substance use type: does not use ROS ROS ED Constitutional Constitutional ED: Denies chills, fever(s), subjective or sweats Eyes Eyes: Denies blurry vision, change in vision or diplopia ENT ENT ED: Denies ear pain, rhinorrhea or sore throat Cardiovascular Cardiovascular: Reports palpitations and racing heartbeat; Denies chest pain, orthopnea or paroxysmal nocturnal dyspnea Respiratory/Chest Respiratory/Chest: Reports dyspnea; Denies cough, dyspnea on exertion, orthopnea or paroxysmal nocturnal dyspnea Gastrointestinal Gastrointestinal: Denies abdominal pain, diarrhea, melena, nausea or vomiting Genitourinary Genitourinary ED: Denies dysuria, hematuria or urinary frequency Musculoskeletal Musculoskeletal: Denies arthralgias, back pain, myalgias or neck pain Neurologic Neurologic: Denies headache(s), paresthesias or weakness Psychiatric Psychiatric: Denies anxiety or depression Endocrine Endocrinology: Denies cold intolerance or heat intolerance Hematologic/Lymphatic Hematologic/Lymphatic: Denies easy bleeding or easy bruising EXAM Physical Exam Const Vital Signs: 01/23/22 13:22 01/23/22 13:31 01/23/22 13:31 Temperature 96.0 F L Temperature Source Temporal Pulse Rate 138 H 137 H Respiratory Rate 20 H 19 H Respiratory Effort Short of Breath Labored Blood Pressure 158/109 H 148/108 H Blood Pressure Mean 125 121 Pulse Ox 98 98 Oxygen Delivery Method Room Air Room Air 01/23/22 13:53 01/23/22 13:57 01/23/22 13:58 Temperature Temperature Source Pulse Rate 136 H 104 H 114 H Respiratory Rate Respiratory Effort Blood Pressure Blood Pressure Mean Pulse Ox Oxygen Delivery Method 01/23/22 13:58 01/23/22 13:59 01/23/22 14:00 Temperature Temperature Source Pulse Rate 114 H 92 96 Respiratory Rate Respiratory Effort Blood Pressure Blood Pressure Mean Pulse Ox Oxygen Delivery Method 01/23/22 14:01 01/23/22 14:52 01/23/22 15:00 Temperature Temperature Source Pulse Rate 95 67 73 Respiratory Rate 15 18 Respiratory Effort Blood Pressure 178/97 H 178/97 H Blood Pressure Mean 124 124 Pulse Ox 97 99 Oxygen Delivery Method Room Air Room Air 01/23/22 15:54 Temperature Temperature Source Pulse Rate 75 Respiratory Rate 15 Respiratory Effort Blood Pressure 125/77 H Blood Pressure Mean 93 Pulse Ox 99 Oxygen Delivery Method Room Air Positive well nourished, well developed and obese General Appearance ED: well developed and NAD; Negative for cyanotic or diaphoretic Nutritional Appearance: obese HEENT Reports moist mucous membranes HEENT Narrative: Head is atraumatic normocephalic. Ears normal. Nares patent. Uvula midline. No deviation tongue with protrusion. There is no evidence of angioedema. Eyes PERRL and EOMs intact bilaterally General Eye ED: Negative for pale conjunctiva or scleral icterus Neck no lymphadenopathy and supple Chest Wall inspection of chest normal and palpation of chest normal Resp normal respiratory effort and clear to auscultation bilaterally Cardio regular rate, S1 normal heart sound, S2 normal heart sound and no murmurs Rate: tachycardic GI normal to inspection, nondistended, normoactive bowel sounds, non-tender, non-distended and hepatosplenomegaly Palpation: soft Back/Spine no CVA tenderness Neuro oriented x3, CN's II-XII intact bilaterally and no sensory deficits noted Sensorium / Orientation: alert Sensory Exam: sensory level loss detected Skin no rashes or lesions noted, no wounds and skin turgor normal MDM MDM MDM Narrative Medical decision making narrative: Patient's monitor reveals a narrow complex tachycardia. Unable to determine if this is a flutter versus sinus tach. Will obtain EKG. Electrolytes were obtained. Patient will receive Cardizem since she is present Cardizem. Patient heart rate did slow. Attempt to reassess was canceled because patient states she needs to use the restroom. With movement she does become tachycardic. Heart rate decreased to 98. Unable to determine rhythm on monitor. Will obtain new EKG. Patient's heart rate presently is 75. It appears regular. Will discharge to home to follow-up with her remotely operated vehicle who is affiliated with the [facility]. Lab Data Attestation: I reviewed the patient's lab results. Lab results narrative: CBC is unremarkable. Basic metabolic panels marked for an elevated creatinine of 1.18, which is patient's baseline. Glucose is elevated at 164. She does not have history of diabetes. Labs: Laboratory Results - last 24 hr 01/23/22 01/23/22 13:45 13:45 WBC 6.4 RBC 4.90 Hgb 13.4 Hct 41.2 MCV 84.1 MCH 27.3 MCHC 32.5 RDW Std Deviation 39.5 RDW Coeff of Lily 13.0 Plt Count 307 MPV 10.5 Immature Gran % (Auto) 1.300 H Neut % (Auto) 59.4 Lymph % (Auto) 30.2 [place] % (Auto) 6.4 Eos % (Auto) 1.9 Baso % (Auto) 0.8 Absolute Neuts (auto) 3.8 Absolute Lymphs (auto) 1.93 Nucleated RBC % 0 Sodium 139 Potassium 3.8 Chloride 108 H Carbon Dioxide 24.0 Anion Gap 7 BUN 13 Creatinine 1.18 H Estim Creat Clear Calc 59.62 Est GFR (MDRD) Af Amer 61 Est GFR (MDRD) Non-Af 51 L BUN/Creatinine Ratio 11.0 Glucose 164 H Calcium 9.4 EKG Initial EKG: Attestation: I personally reviewed and interpreted this EKG as follows: Interpretation: Atrial Flutter (Patient has a 2-1 block. Rate is 136. Disagree with interpretation by computer. There is low voltage most likely due to body habitus. She has decreased anterior force noted as well. NC interval is 150. QRS duration 80 ms. QT duration 284 ms. [place] is normal) Follow-up EKG: Attestation: I personally reviewed and interpreted this EKG as follows: Interpretation: Atrial Flutter (Ventricular rate is 79 with a variable AV block. QS duration 96 ms. QT duration 386 ms. [place] is normal. Voltage is low.) Discharge Plan Triage Chief Complaint: Palpitations ED Provider: Tommy Lopez Dx/Rx/DC Orders Clinical Impression: Atrial flutter with rapid ventricular response, Acute dyspnea, Family history of GERD Instructions: ED Atrial Flutter Prescriptions: No Action etodolac 400 MG tablet 400 mg PO BID sulfamethoxazole-trimethoprim 1 TABLET tablet 1 tab PO BID Hold Instructions: per pt ascorbic acid (vitamin C) 1,000 MG tablet 1,000 mg PO BIDCM doxycycline hyclate 100 MG capsule 100 mg PO TID Hold Instructions: per pt tramadol 50 MG tablet 50 mg PO BID Label Comments: TAKE 1 TABLET TWICE DAILY NEEDED lansoprazole 15 MG capsule,delayed release(DR/EC) 15 mg NG DAILY vitamin B complex 1 EACH tablet 1 tab PO DAILY turmeric root extract 500 MG capsule 500 mg PO BID digoxin 250 mcg tablet 250 mcg PO DAILY Qty: 90 0RF diltiazem HCl 240 mg capsule,extended release 24hr 240 mg PO DAILY Qty: 90 0RF Primary Care Provider: Mark Hurtado Referrals: Mark Hurtado MD [Primary Care Provider] - As Needed Activity Restrictions/Additional Instructions: Can contact your remotely operated vehicle affiliated with the [facility] for follow-up Disposition Disposition: Home, Self Care
[2022-01-23] MEDS: dilTIAZem 25 MG/5 ML Vial 20 MG IV BOLUS (13:52)
[2022-01-23 13:55] LABS: Absolute Lymphocyte Count 1.93 X10^3/uL (0.83-4.51); Absolute Neutrophil Count 3.8 X10^3/uL (2.0-7.7); Basophil# 0.05 X10^3/uL; Basophil% 0.8 % (0-1); Eosinophil# 0.12 X10^3/uL; Eosinophils% 1.9 % (0-5); Hematocrit 41.2 % (37-47); Hemoglobin 13.4 g/dL (12.0-15.0); Lymphocyte # 1.93 X10^3/ul (0.83-4.51); Lymphocyte % 30.2 % (19-41); Mean Corp Hgb Conc 32.5 g/dL (32-36); Mean Corpuscular Hgb 27.3 pg (27.0-32.0); Mean Corpuscular Volume 84.1 fL (81-99); Mean Platelet Vol. 10.5 fl (6.2-12.0); Monocyte# 0.41 X10^3/uL; Monocyte% 6.4 % (0-10); NRBC Flagged by Analyzer 0 % (0-5); Neutrophil # 3.81 X10^3/uL (2.7-7.7); Neutrophil % 59.4 % (47-70); Platelet Count 307 K/mm3 (150-450); RBC Distribution Width SD 39.5 fl (35.1-43.9); White Blood Count 6.4 K/mm3 (4.4-11.0)
[2022-01-23 14:08] LABS: Anion Gap 7 (5-15); BUN 13 mg/dL (7-18); Calcium,Total 9.4 mg/dL (8.5-10.1); Chloride 108 mmol/L (98-107); Creatinine, Serum 1.18 mg/dL (0.55-1.02); EST Glomerular Filtration Rate 51 mL/min (>60); Est Glom Filt Rate - Afr Amer 61 mL/min (>60); Estimated Creatinine Clearance 59.62 ml/min; Glucose 164 mg/dL (74-106); Potassium 3.8 mmol/L (3.5-5.1); Sodium Level 139 mmol/L (136-145)
--- NOTE | 2022-01-23 15:51 | EKG12_ITS ---
Test Reason : repeat Blood Pressure : / mmHG Vent. Rate : 079 BPM Atrial Rate : 271 BPM P-R Int : 000 ms QRS Dur : 096 ms QT Int : 386 ms P-R-T Axes : 048 016 031 degrees QTc Int : 442 ms Atrial flutter with variable A-V block Low voltage QRS Abnormal ECG Confirmed by ZOZY MCCLAIN, MELVI ([id number]), editor managing director TAE REDDING ([id number]) on 01/24/2022 1:45:57 PM Referred By: John Confirmed By:MELVI PRECIADO MD
== END 2022-01-23 16:05 | disposition home or self-care (01) ==
PROVIDERS: Emergency Provider Emergency Medicine; PCP Family Medicine; Visit Provider Emergency Medicine
DX: I48.92 Unspecified atrial flutter (principal); E66.01 Morbid (severe) obesity due to excess calories; R06.00 Dyspnea, unspecified; R73.9 Hyperglycemia, unspecified; K21.9 Gastro-esophageal reflux disease without esophagitis; F17.220 Nicotine dependence, chewing tobacco, uncomplicated; Z79.82 Long term (current) use of aspirin; Z79.899 Other long term (current) drug therapy
CPT/HCPCS: 80048; 85025; 93005; 96374; 99284; A4216

== ENCOUNTER → 2022-02-06 | Outpatient (CLI) | payer SELFPAY ==
[2022-02-06 18:21] LABS: T3 Total - Triiodothyronine 1.67 ng/mL (0.6-1.81)
[2022-02-06 18:35] LABS: Free T3 3.5 pg/mL (2.18-3.98); T4 Free Direct 0.77 ng/dL (0.76-1.46)
[2022-02-13 08:47] LABS: T3 Reverse 17.5 ng/dL (9.2-24.1)
== END | disposition home or self-care (01) ==
PROVIDERS: PCP Family Medicine; Referring Provider Family Medicine
DX: E06.3 Autoimmune thyroiditis (principal); R53.82 Chronic fatigue, unspecified; E07.81 Sick-euthyroid syndrome
CPT/HCPCS: 36415; 84439; 84443; 84480; 84481; 84482

== ENCOUNTER → 2022-08-20 | Outpatient (CLI) | payer SELFPAY ==
[2022-08-20 17:54] LABS: T3 Total - Triiodothyronine 1.49 ng/mL (0.6-1.81)
[2022-08-20 17:59] LABS: Free T3 3.3 pg/mL (2.18-3.98); Thyroid Stim Hormone (TSH) 0.59 uIU/mL (0.358-3.74)
[2022-08-27 08:15] LABS: T3 Reverse 19.9 ng/dL (9.2-24.1)
== END | disposition home or self-care (01) ==
PROVIDERS: PCP Family Medicine; Referring Provider Family Medicine
DX: E06.3 Autoimmune thyroiditis (principal); E07.81 Sick-euthyroid syndrome; R53.82 Chronic fatigue, unspecified
CPT/HCPCS: 36415; 84439; 84443; 84480; 84481; 84482

== ENCOUNTER 2023-02-16 13:42 | Emergency (ER) | payer SELFPAY ==
[2023-02-16 13:46] VITALS: BP 155/91; PULSE 91; RESP 18; TEMP 35.7; O2SAT 99
--- NOTE | 2023-02-16 14:13 | EKG12_ITS ---
Test Reason : CP Blood Pressure : / mmHG Vent. Rate : 071 BPM Atrial Rate : 071 BPM P-R Int : 160 ms QRS Dur : 096 ms QT Int : 384 ms P-R-T Axes : 050 -01 034 degrees QTc Int : 417 ms Normal sinus rhythm Normal ECG Confirmed by LUKASZ LOBO MD ([id number]), online editor ALDA JAMIL ([id number]) on 02/20/2023 11:37:26 AM Referred By: Donald Confirmed By:LUKASZ LOBO MD
--- NOTE | 2023-02-16 14:21 | EDS_ITS ---
HPI History of Present Illness Chief Complaint: Dizziness Informant: patient Onset/Context/Timing Onset: Today Narrative Narrative: Patient presents secondary to dizziness as well as intermittent sharp chest pain that started this morning. Patient states that she woke up last morning with facial swelling and she had a tooth on the right maxillary surface that is been bothering her recently. She saw her doctor and was placed on cefdinir for presumed sinusitis and/or dental infection. Patient states that she woke this morning feeling dizzy. She describes this both as lightheaded as well as a slight spinning sensation. She is also had some intermittent sharp chest pain that lasts just a few seconds at a time. She is a history of paroxysmal A-fib/flutter and wanted to be evaluated. She is concerned that she may be having an allergic reaction to cefdinir. [facility] Medical History Atrial fibrillation GERD (gastroesophageal reflux disease) Home Medications etodolac 400 mg tablet 400 mg PO BID pain 01/04/17 [History Last Taken 01/27/19 400 mg] ascorbic acid (vitamin C) 1,000 mg tablet 1,000 mg PO BIDCM vitamin 01/27/19 [History Last Taken 01/27/19] doxycycline hyclate 100 mg capsule 100 mg PO TID antibiotic 01/27/19 [History Last Taken 01/27/19] lansoprazole 15 mg capsule,delayed release 15 mg NG DAILY reflux 01/27/19 [History Last Taken 01/27/19] sulfamethoxazole 800 mg-trimethoprim 160 mg tablet 1 tab PO BID antibiotic 01/27/19 [History Last Taken 01/27/19] tramadol 50 mg tablet 50 mg PO BID pain 01/27/19 [History Last Taken 01/27/19] turmeric root extract 500 mg capsule 500 mg PO BID supplement 01/27/19 [History Last Taken 01/27/19] vitamin B complex 1 tab PO DAILY vitamin 01/27/19 [History Last Taken 01/27/19] digoxin 250 mcg (0.25 mg) tablet 250 mcg PO DAILY #90 tabs 02/25/19 [Rx Last Taken Unknown] diltiazem HCl 240 mg capsule,extended release 24 hr 240 mg PO DAILY #90 caps 02/25/19 [Rx Last Taken Unknown] clindamycin HCl 150 mg capsule 300 mg (2 x 150 mg) PO 4X/DAY #80 CAPSULES 0 02/16/23 [Rx Last Taken Unknown] Allergy/AdvReac Type Severity Reaction Status Date / Time penicillin Allergy Intermediate Swelling Verified 02/16/23 13:46 Surgical History Gallbladder Removed Social History Smoking Status: Current every day smoker tobacco type: smokeless tobacco alcohol intake: current alcohol intake frequency: holidays/special occasions only substance use type: does not use ROS ROS ED Constitutional Constitutional ED: Denies chills or fever(s) Eyes Eyes: Denies change in vision or discharge from eye(s) ENT ENT ED: Reports other Details: Right upper dental pain ; Denies discharge from eye(s), rhinorrhea or sore throat Cardiovascular Cardiovascular: Reports chest pain; Denies palpitations Respiratory/Chest Respiratory/Chest: Denies cough or dyspnea Gastrointestinal Gastrointestinal: Denies abdominal pain, nausea or vomiting Genitourinary Genitourinary ED: Denies dysuria Musculoskeletal Musculoskeletal: Denies back pain or extremity pain Integumentary Denies Abrasions or rash Neurologic Neurologic: Denies headache(s) or weakness Allergic/Immunologic Allergic/Immunologic ED: Denies lip swelling or urticaria EXAM Physical Exam Const Vital Signs: 02/16/23 13:46 02/16/23 14:05 Temperature 96.3 F L Temperature Source Temporal Pulse Rate 91 Respiratory Rate 18 Respiratory Pattern Normal Blood Pressure 155/91 H Blood Pressure Mean 112 Pulse Ox 99 Oxygen Delivery Method Room Air Positive well nourished and well developed General Appearance ED: well developed HEENT Reports normocephalic and head/scalp atraumatic HEENT Narrative: TMs are clear bilaterally Eyes PERRL and EOMs intact bilaterally Neck supple Chest Wall inspection of chest normal and palpation of chest normal Resp normal respiratory effort and clear to auscultation bilaterally Cardio regular rate and regular rhythm GI normal to inspection, nondistended, normoactive bowel sounds Palpation: soft Extremity normal to inspection Neuro oriented x3 and no sensory deficits noted Sensorium / Orientation: alert Motor Exam: strength 5/5 throughout Psych mental status grossly normal Skin no rashes or lesions noted MDM MDM MDM Narrative Medical decision making narrative: Patient placed on residential monitor. EKG obtained to evaluate for cardiac arrhythmia/ischemia. Chest x-ray obtained to evaluate for acute lung pathology, cardiac size, or mediastinal abnormality. Labwork obtained to evaluate for leukocytosis, anemia, and electrolyte derangement. Patient given a liter IV fluids. History & Record Review Discussion w/independent historian: Patient Lab Data Attestation: I reviewed the patient's lab results. Labs: Laboratory Results - last 24 hr 02/16/23 14:20 WBC 6.1 RBC 4.59 Hgb 12.5 Hct 38.6 MCV 84.1 MCH 27.2 MCHC 32.4 RDW Std Deviation 39.9 RDW Coeff of Lily 13.1 Plt Count 267 MPV 10.7 Immature Gran % (Auto) 1.800 H Neut % (Auto) 67.2 Lymph % (Auto) 21.0 Beckham % (Auto) 7.4 Eos % (Auto) 1.8 Baso % (Auto) 0.8 Absolute Neuts (auto) 4.1 Absolute Lymphs (auto) 1.28 Nucleated RBC % 0 Sodium 139 Potassium 3.8 Chloride 109 H Carbon Dioxide 26.0 Anion Gap 4 L BUN 12 Creatinine 1.03 H Est GFR (MDRD) Af Amer 72 Est GFR (MDRD) Non-Af 59 L BUN/Creatinine Ratio 11.7 Glucose 144 H Calcium 9.4 Troponin I High Sens 3 EKG Initial EKG: Attestation: I personally reviewed and interpreted this EKG as follows: Interpretation: Sinus Rhythm (Sinus at 71 with no acute ischemia.) Treatment and Re-Evaluation :: CBC and chemistry studies are unremarkable. Troponin is normal at 3. EKG is sinus rhythm with no acute ischemia. Patient refused her chest x-ray. On repeat evaluation she is resting comfortably. She has received about 500 cc of IV fluid. Patient believes that her symptoms today are secondary to the cefdinir she is taking and does not want take them any further. I did look at her teeth again. Her right maxillary premolars are dark in color and slightly tender. No gum edema at this time, however patient states that they had been swollen. I will treat her with a course of clindamycin. Discharge Plan Triage Chief Complaint: Dizziness ED Provider: Julissa Davis Dx/Rx/DC Orders Clinical Impression: Dizziness, Odontalgia Instructions: ED Dental Pain, ED Dizziness, Uncertain Cause Prescriptions: New clindamycin HCl 150 mg capsule 300 mg PO 4X/DAY Qty: 80 0RF No Action etodolac 400 MG tablet 400 mg PO BID sulfamethoxazole-trimethoprim 1 TABLET tablet 1 tab PO BID Hold Instructions: per pt ascorbic acid (vitamin C) 1,000 MG tablet 1,000 mg PO BIDCM doxycycline hyclate 100 MG capsule 100 mg PO TID Hold Instructions: per pt tramadol 50 MG tablet 50 mg PO BID Patient Comments: TAKE 1 TABLET TWICE DAILY NEEDED lansoprazole 15 MG capsule,delayed release(DR/EC) 15 mg NG DAILY vitamin B complex 1 EACH tablet 1 tab PO DAILY turmeric root extract 500 MG capsule 500 mg PO BID digoxin 250 mcg tablet 250 mcg PO DAILY Qty: 90 0RF diltiazem HCl 240 mg capsule,extended release 24hr 240 mg PO DAILY Qty: 90 0RF Primary Care Provider: Mark Hurtado Referrals: Mark Hurtado MD [Primary Care Provider] - 1 Week Disposition Disposition: Home, Self Care
[2023-02-16 14:27] LABS: Absolute Lymphocyte Count 1.28 X10^3/uL (0.83-4.51); Absolute Neutrophil Count 4.1 X10^3/uL (2.0-7.7); Basophil# 0.05 X10^3/uL; Basophil% 0.8 % (0-1); Eosinophil# 0.11 X10^3/uL; Eosinophils% 1.8 % (0-5); Hematocrit 38.6 % (37-47); Hemoglobin 12.5 g/dL (12.0-15.0); Lymphocyte # 1.28 X10^3/ul (0.83-4.51); Mean Corp Hgb Conc 32.4 g/dL (32-36); Mean Corpuscular Hgb 27.2 pg (27.0-32.0); Mean Corpuscular Volume 84.1 fL (81-99); Mean Platelet Vol. 10.7 fl (6.2-12.0); Monocyte# 0.45 X10^3/uL; Monocyte% 7.4 % (0-10); NRBC Flagged by Analyzer 0 % (0-5); Neutrophil # 4.09 X10^3/uL (2.7-7.7); Neutrophil % 67.2 % (47-70); Platelet Count 267 K/mm3 (150-450); RBC Distribution Width CV 13.1 % (11.6-14.6); RBC Distribution Width SD 39.9 fl (35.1-43.9); Red Blood Count 4.59 M/mm3 (4.2-5.4); White Blood Count 6.1 K/mm3 (4.4-11.0)
[2023-02-16] MEDS: 0.9% Normal Saline 1,000 ML 1000 ML IV (14:29)
[2023-02-16 14:49] LABS: Anion Gap 4 (5-15); BUN 12 mg/dL (7-18); BUN/Creat Ratio 11.7 RATIO (10-20); Calcium,Total 9.4 mg/dL (8.5-10.1); Chloride 109 mmol/L (98-107); Creatinine, Serum 1.03 mg/dL (0.55-1.02); EST Glomerular Filtration Rate 59 mL/min (>60); Est Glom Filt Rate - Afr Amer 72 mL/min (>60); Glucose 144 mg/dL (74-106); Potassium 3.8 mmol/L (3.5-5.1); Sodium Level 139 mmol/L (136-145); Troponin-I HS 3 pg/mL (3.0-54.0)
[2023-02-16 16:23] VITALS: BMI 55.9
[2023-02-16 17:03] VITALS: BP 128/76; PULSE 78; RESP 16; O2SAT 99
--- NOTE | 2023-02-16 17:04 | ED.RN ---
Patient removed IV due to being tired of waiting for my discharge. Patient given instructions and ambulated from dept.
== END 2023-02-16 17:05 | disposition home or self-care (01) ==
PROVIDERS: Emergency Provider Emergency Medicine; PCP Family Medicine; Visit Provider Emergency Medicine
DX: R42 Dizziness and giddiness (principal); K08.89 Other specified disorders of teeth and supporting structures; F17.220 Nicotine dependence, chewing tobacco, uncomplicated
CPT/HCPCS: 80048; 84484; 85025; 93005; 96360; 99284; J7030; A4216

== ENCOUNTER → 2023-09-08 | Outpatient (CLI) | payer SELFPAY ==
[2023-09-08 18:06] LABS: T3 Total - Triiodothyronine 1.61 ng/mL (0.6-1.81)
[2023-09-08 18:16] LABS: T4 Free Direct 1.03 ng/dL (0.76-1.46); Thyroid Stim Hormone (TSH) 0.56 uIU/mL (0.358-3.74)
[2023-09-17 02:07] LABS: T3 Reverse 27.3 ng/dL (9.2-24.1)
== END | disposition home or self-care (01) ==
LOC: MFPLAB 15:27
PROVIDERS: PCP Family Medicine; Visit Provider Family Medicine
DX: E07.81 Sick-euthyroid syndrome (principal); G93.32 Myalgic encephalomyelitis/chronic fatigue syndrome; E06.3 Autoimmune thyroiditis
CPT/HCPCS: 36415; 84439; 84443; 84480; 84481; 84482

== ENCOUNTER → 2024-03-03 | Outpatient (CLI) | payer SELFPAY ==
[2024-03-03 18:07] LABS: T3 Total - Triiodothyronine 1.51 ng/mL (0.6-1.81)
[2024-03-03 18:11] LABS: Free T3 3.2 pg/mL (2.18-3.98); T4 Free Direct 0.75 ng/dL (0.76-1.46); Thyroid Stim Hormone (TSH) 0.489 uIU/mL (0.358-3.740)
[2024-03-08 11:10] LABS: T3 Reverse 20.6 ng/dL (9.2-24.1)
== END | disposition home or self-care (01) ==
LOC: MFPLAB 15:19
PROVIDERS: PCP Family Medicine
DX: G93.32 Myalgic encephalomyelitis/chronic fatigue syndrome (principal); E07.81 Sick-euthyroid syndrome
CPT/HCPCS: 36415; 84439; 84443; 84480; 84481; 84482

== ENCOUNTER → 2024-08-25 | Outpatient (CLI) | payer SELFPAY ==
[2024-08-25 19:46] LABS: Free T3 3.8 pg/mL (2.18-3.98); T3 Total - Triiodothyronine 1.54 ng/mL (0.80-2.00); Thyroid Stim Hormone (TSH) 0.708 uIU/mL (0.300-4.200)
[2024-09-02 07:07] LABS: T3 Reverse 26.5 ng/dL (9.2-24.1)
== END | disposition home or self-care (01) ==
LOC: MFPLAB 15:28
PROVIDERS: PCP Family Medicine
DX: E06.3 Autoimmune thyroiditis (principal); E07.81 Sick-euthyroid syndrome; R53.82 Chronic fatigue, unspecified
CPT/HCPCS: 36415; 84439; 84443; 84480; 84481; 84482

== ENCOUNTER → 2025-02-27 | Outpatient (CLI) | payer SELFPAY ==
[2025-02-27 18:15] LABS: Free T3 3.7 pg/mL (2.18-3.98); T3 Total - Triiodothyronine 1.66 ng/mL (0.80-2.00)
== END | disposition home or self-care (01) ==
LOC: MFPLAB 15:09
PROVIDERS: PCP Family Medicine
DX: E07.81 Sick-euthyroid syndrome (principal); E06.3 Autoimmune thyroiditis; R53.82 Chronic fatigue, unspecified
CPT/HCPCS: 36415; 84439; 84443; 84480; 84481; 84482